=== PATIENT | female | born 1945 | race Caucasian/White ===

== ENCOUNTER 2016-10-16 12:41 | Emergency (ER) | payer OTHER ==
[~2016-10-16 12:41] MED LIST: ADVAIR HF1 IN; ADVIL PM1 CAP PO; ALBUTEROL HFA60 DOSE IN; ASPIRIN EC LOW81 MG PO; CENTRUM SILVER PO; CLARITIN10 M1 PO; FISH OIL1000 M1 PO; FLAX SEED OIL1300 MG PO; LOSARTAN POTAS100 MG PO; METOPROLOL TART25 MG PO; PAROXETINE HCL30 MG PO; PRAMIPEXOLE DI0.5 MG PO; PRAVASTATIN SOD20 MG PO; PRILOSEC20 MG PO
--- NOTE | 2016-10-16 14:12 | DIAGNOSTIC IMAGING REPORT ---
PROCEDURE: XR CHEST 2 VIEW INDICATION: PRODUCTIVE COUGH X 3 WEEKS, initial encounter TECHNIQUE: PA and lateral view. COMPARISON: Chest x-ray 07/22/2016 FINDINGS: Lungs are clear. Left pericardial fat pad. Cardiovascular structures are normal. Bony thorax is unremarkable. No significant interval change. IMPRESSION: 1. No acute changes
--- NOTE | 2016-10-16 15:50 | ED NURSING NOTES ---
Clinical Report - Nurses [facility] [address] [place] [address] 10/16/2016 12:42 Patient: CHRISTINE SHEETS TRIAGE Triage time 13:14 Oct 16 2016. Acuity: LEVEL 3. Chief Complaint: COUGH. Alert. No acute distress. --13:23 Lisseth Fisher R.N. 13:14 10/16/16. BP: 168/67. HR: 76. RR: 18. O2 saturation: 99%. Temp: 98.7 F. Pain level now 01/07. --13:23 Lisseth Fisher R.N. Weight: 86.1 kg stated. Height/Length: 60 inches Per Patient. BMI: 37.1. --13:14 Lisseth Fisher R.N. Medications Advair 115/21 day, 2x a day. Allergy med otc day . Centrim silver 220mg day . Fish oil 1000mg BID. Losartan Potassium Oral 25 mg, daily. --13:18 Lisseth Fisher R.N. Melatonin Oral (Tablet 3 mg) 1 tablet, hs. Metoprolol Tartrate Oral 25 mg, bid. Omeprazole Oral 20 mg, daily. Pravastatin Sodium Oral 20 mg, at bedtime. Proventil inhaler prn . Requip Oral (Tablet 0.5 mg) 1 tablet, hs. Sertraline HCl Oral (Tablet 25 mg) 1 tablet, daily. --13:18 Lisseth Fisher R.N. ASA Oral 81mg (1 tablet every other day). --13:19 Lisseth Fisher R.N. Lasix Oral (unknonwn dose, just started by Cardio). --13:21 Lisseth Fisher R.N. Medication/allergy information source: the patient. --13:23 Lisseth Fisehr R.N. Allergies No Known Drug Allergy. --13:18 Lisseth Fisher R.N. History Arrived by private vehicle. Historian: daughter, patient and family. Primary physician (Dr. Cardozo). ( Cough for 3 weeks, has been seen by Urgent Care, no RX. Now increased cough and chest congestion. C/O headache 01/07. Just NAYELI, pt see's a Personnel Director, had an Outpatient CT today at , DX Pulmonary AVM. Could not get into Cas's office.). Onset. (3 weeks). Treatment PROCEDURES NURSE: (OTC pills for cough). PAST MEDICAL HX: Immunizations: has received pneumonia vaccine; seasonal influenza. SOCIAL HX: Never smoker. Occasional alcohol use; consumes wine. No drug use. No infectious disease exposure. FALL RISK ASSESSMENT: Fall risk assessment completed. No fall risk identified. NUTRITIONAL RISK ASSESSMENT: The nutritional risk assessment revealed no deficiencies. FUNCTIONAL ASSESSMENT: Functional assessment: no impairments noted. LEARNING NEEDS ASSESSMENT: The learning needs assessment revealed no barriers. SKIN INTEGRITY ASSESSMENT: Skin integrity risk assessment completed. No skin integrity risk identified. --13:23 Lisseth Fisher R.N. PROBLEMS: Neck Pain. Chest Pain. Chest pain . Bronchospasm. Bronchitis. Hepatitis. Hypercholesterolemia. Hypertension. Memory impairment. Asthma. Corotid blockage right. --13:21 Lisseth Fisher R.N. ADDITIONAL SURGERIES: Adenoidectomy. Angiography. Appendectomy. Bladder Suspension. Cholecystectomy. Hysterectomy. Oophorectomy. Salpingectomy. Shoulder Surgery. Tonsillectomy. --13:21 Lisseth Fisher R.N. Interventions ID band on patient. To room. --13:23 Lisseth Fisher R.N. PHYSICAL ASSESSMENT Ambulatory to room. GENERAL / NEURO / PSYCH: Oriented X 4. Appears in no acute distress. CVS: Capillary refill less than 2 seconds. SKIN: Skin is warm and dry. --13:27 Lisseth Fisher R.N. NURSING PROGRESS NOTES Patient ready for evaluation- ED physician and SHARE DAIRY FARMER notified. --13:23 Lisseth Fisher R.N. 13:38 10/16/2016 Duoneb (Ipratropium-Albuterol) Neb TX 1 unit dose given. --13:38 Mychal Williamson 14:56 10/16/2016 Albuterol Neb TX 3 unit dose given. Given by the respiratory therapist. --15:06 Mychal Williamson. DISPOSITION / DISCHARGE 16:10. Condition at departure: improved. No learning barriers present. Discharge instructions provided and reviewed with the patient. Reviewed medication(s) side effects, precautions, dosing and course information. Prescription(s) given to the patient. Patient verbalized understanding. Written instructions provided in Tuvaluan. The patient was discharged home and accompanied by family. She left the Emergency Department ambulatory and via private vehicle. Family member driving. Medication list reviewed and validated. --16:19 Nerissa Reddy R.N. Departure time: 1610. --16:19 Nerissa Reddy R.N. 18:01 10/16/16. BP: 146/47. HR: 110. RR: 18. O2 saturation: 95%. Pain level now 0/10. --18:02 Lisseth Fisher R.N. Locked/Released at 10/16/2016 18:02 by Lisseth Fisher R.N.
--- NOTE | 2016-10-16 15:50 | ED ORDER SUMMARY ---
..... Patient: CHRISTINE SHEEST OrderSheet [facility] VisitID: [id number] [place] [address] 71y, F Registration Date/Time: 10/16/2016 ORDER SHEET Weight: 86.1 kg (stated) Allergies: No Known Drug Allergy GENERAL ORDERS: Chest 2V Urgent (13:32 10/16/2016 Dereje Baker) (Ack 13:41 NHouse ER Tech1) (14:44 NHouse ER Tech1) MEDICATION ORDERS: DuoNeb Neb Tx 1 unit dose (NOW) (13:32 10/16/2016 Dereje Baker) (13:38 DBourey) Albuterol Neb Tx 7.5 mg (once now over 1 hour) (14:44 10/16/2016 Dereje Baker) (Ack 14:51 NHouse ER Tech1) (15:06 DBourey) Azithromycin PO 500 mg (NOW) (15:49 10/16/2016 Dereje Baker) (Ack 16:00 SRjelani R.N.) Prednisone PO 60 mg (NOW) (15:50 10/16/2016 Dereje Baker) (Ack 16:00 Elvin R.N.) IV FLUIDS: ORDER SHEET NOTES: [Electronically signed by Lisseth Fisher R.N. (18:02 10/16/2016)] [Electronically signed by Rush Partida Dr. (06:38 10/20/2016)] [Electronically locked/signed by Lisseth Fisher R.N. (18:02 10/16/2016)]
--- NOTE | 2016-10-16 15:50 | ED NURSING NOTES ---
Clinical Report - Nurses [facility] [address] [place] [address] 10/16/2016 12:42 Patient: CHRISTINE SHEETS TRIAGE Triage time 13:14 Oct 16 2016. Acuity: LEVEL 3. Chief Complaint: COUGH. Alert. No acute distress. --13:23 Lisseth Fisher R.N. 13:14 10/16/16. BP: 168/67. HR: 76. RR: 18. O2 saturation: 99%. Temp: 98.7 F. Pain level now 01/07. --13:23 Lisseth Fisher R.N. Weight: 86.1 kg stated. Height/Length: 60 inches Per Patient. BMI: 37.1. --13:14 Lisseth Fisher R.N. Medications Advair 115/21 day, 2x a day. Allergy med otc day . Centrim silver 220mg day . Fish oil 1000mg BID. Losartan Potassium Oral 25 mg, daily. --13:18 Lisseth Fisher R.N. Melatonin Oral (Tablet 3 mg) 1 tablet, hs. Metoprolol Tartrate Oral 25 mg, bid. Omeprazole Oral 20 mg, daily. Pravastatin Sodium Oral 20 mg, at bedtime. Proventil inhaler prn . Requip Oral (Tablet 0.5 mg) 1 tablet, hs. Sertraline HCl Oral (Tablet 25 mg) 1 tablet, daily. --13:18 Lisseth Fisher R.N. ASA Oral 81mg (1 tablet every other day). --13:19 Lisseth Fisher R.N. Lasix Oral (unknonwn dose, just started by Cardio). --13:21 Lisseth Fisher R.N. Medication/allergy information source: the patient. --13:23 Lisseth Fisher R.N. Allergies No Known Drug Allergy. --13:18 Lisseth Fisher R.N. History Arrived by private vehicle. Historian: daughter, patient and family. Primary physician (Dr. Cardozo). ( Cough for 3 weeks, has been seen by Urgent Care, no RX. Now increased cough and chest congestion. C/O headache 01/07. Just NAYELI, pt see's a Business Information Analyst, had an Outpatient CT today at , DX Pulmonary AVM. Could not get into Cas's office.). Onset. (3 weeks). Treatment OUTPATIENT SURGERY RN: (OTC pills for cough). PAST MEDICAL HX: Immunizations: has received pneumonia vaccine; seasonal influenza. SOCIAL HX: Never smoker. Occasional alcohol use; consumes wine. No drug use. No infectious disease exposure. FALL RISK ASSESSMENT: Fall risk assessment completed. No fall risk identified. NUTRITIONAL RISK ASSESSMENT: The nutritional risk assessment revealed no deficiencies. FUNCTIONAL ASSESSMENT: Functional assessment: no impairments noted. LEARNING NEEDS ASSESSMENT: The learning needs assessment revealed no barriers. SKIN INTEGRITY ASSESSMENT: Skin integrity risk assessment completed. No skin integrity risk identified. --13:23 Lisseth Fisher R.N. PROBLEMS: Neck Pain. Chest Pain. Chest pain . Bronchospasm. Bronchitis. Hepatitis. Hypercholesterolemia. Hypertension. Memory impairment. Asthma. Corotid blockage right. --13:21 Lisseth Fisher R.N. ADDITIONAL SURGERIES: Adenoidectomy. Angiography. Appendectomy. Bladder Suspension. Cholecystectomy. Hysterectomy. Oophorectomy. Salpingectomy. Shoulder Surgery. Tonsillectomy. --13:21 Lisseth Fisher R.N. Interventions ID band on patient. To room. --13:23 Lisseth Fisher R.N. PHYSICAL ASSESSMENT Ambulatory to room. GENERAL / NEURO / PSYCH: Oriented X 4. Appears in no acute distress. CVS: Capillary refill less than 2 seconds. SKIN: Skin is warm and dry. --13:27 Lisseth Fisher R.N. NURSING PROGRESS NOTES Patient ready for evaluation- ED physician and CONTRACT PROCESSOR notified. --13:23 Lisseth Fisher R.N. 13:38 10/16/2016 Duoneb (Ipratropium-Albuterol) Neb TX 1 unit dose given. --13:38 Mychal Williamson 14:56 10/16/2016 Albuterol Neb TX 3 unit dose given. Given by the respiratory therapist. --15:06 Mychal Williamson. DISPOSITION / DISCHARGE 16:10. Condition at departure: improved. No learning barriers present. Discharge instructions provided and reviewed with the patient. Reviewed medication(s) side effects, precautions, dosing and course information. Prescription(s) given to the patient. Patient verbalized understanding. Written instructions provided in Belgian. The patient was discharged home and accompanied by family. She left the Emergency Department ambulatory and via private vehicle. Family member driving. Medication list reviewed and validated. --16:19 Nerissa Reddy R.N. Departure time: 1610. --16:19 Nerissa Reddy R.N. 18:01 10/16/16. BP: 146/47. HR: 110. RR: 18. O2 saturation: 95%. Pain level now 0/10. --18:02 Lisseth Fisher R.N. Locked/Released at 10/16/2016 18:02 by Lisseth Fisher R.N.
--- NOTE | 2016-10-16 15:50 | ED ORDER SUMMARY ---
..... Patient: CHRISTINE SHEETS OrderSheet [facility] VisitID: [id number] [place] [address] 71y, F Registration Date/Time: 10/16/2016 ORDER SHEET Weight: 86.1 kg (stated) Allergies: No Known Drug Allergy GENERAL ORDERS: Chest 2V Urgent (13:32 10/16/2016 Dereje Baker) (Ack 13:41 NHouse ER Tech1) (14:44 NHouse ER Tech1) MEDICATION ORDERS: DuoNeb Neb Tx 1 unit dose (NOW) (13:32 10/16/2016 Dereje Baker) (13:38 DBourey) Albuterol Neb Tx 7.5 mg (once now over 1 hour) (14:44 10/16/2016 Dereje Baker) (Ack 14:51 NHouse ER Tech1) (15:06 DBourey) Azithromycin PO 500 mg (NOW) (15:49 10/16/2016 Dereje Baker) (Ack 16:00 SRjelani R.N.) Prednisone PO 60 mg (NOW) (15:50 10/16/2016 Dereje Baker) (Ack 16:00 Elvin R.N.) IV FLUIDS: ORDER SHEET NOTES: [Electronically signed by Lisseth Fisher R.N. (18:02 10/16/2016)] [Electronically signed by Rush Partida Dr. (06:38 10/20/2016)] [Electronically locked/signed by Lisseth Fisher R.N. (18:02 10/16/2016)]
--- NOTE | 2016-10-20 06:38 | ED DISCHARGE INSTRUCTIONS ---
Patient: CHRISTINE SHEETS General Instructions [facility] VisitID: [id number] [place] [address] 71y, F Registration Date/Time: 10/16/2016 10/16/2016 13:14 BP: 168/67. HR: 76. RR: 18. O2 saturation: 99%. Temp: 98.7 F. Hypertensive. Oxygen saturation normal. Moderate persistent asthma with an acute exacerbation (acute). No status asthmaticus. Acute bacterial bronchitis associated with asthma. INSTRUCTIONS Warnings: GENERAL WARNINGS: Return or contact your physician immediately if your condition worsens or changes unexpectedly, if not improving as expected, or if other problems arise. Specifically return if pain, vomiting, bleeding, breathing difficulty or fever. Your Current Medications: CONTINUE TAKING THE FOLLOWING MEDICATIONS: Advair day* : 2x a day. Allergy med otc day *. ASA Oral : 81mg, 1 tablet every other day. Centrim silver 220mg day *. Fish oil 1000mg BID*. Lasix Oral : unknonwn dose, just started by Cardio. Losartan Potassium Oral : 25 mg daily. Melatonin Oral : Tablet 3 mg, 1 tablet hs. Metoprolol Tartrate Oral : 25 mg bid. Omeprazole Oral : 20 mg daily. Pravastatin Sodium Oral : 20 mg at bedtime. Proventil inhaler prn *. Requip Oral : Tablet 0.5 mg, 1 tablet hs. Sertraline HCl Oral : Tablet 25 mg, 1 tablet daily. Prescription Medications: Azithromycin Z-Ru 500 mg tablets: Take according to package instructions. No refills. Phenergan w/ Codeine 10mg / 6.25mg per 5 mL: take 1 teaspoon every 6 hours as needed for pain or cough. Dispense sixty (60) mL. No refill. Substitution is permissible. Prednisone 50 mg: take 1 orally every day for 5 days. Dispense five (5). No refills. Follow-up: Return to the emergency department as needed. Follow up with your doctor in three days. Reason for referral: recheck today's concerns. Screening today revealed the patient's blood pressure to be in the hypertensive range. Blood pressure screening was not performed during this visit because the patient has an active diagnosis of hypertension. The patient should follow up with a primary care provider for blood pressure management. Understanding of the discharge instructions verbalized by patient. ADDITIONAL INFORMATION Asthma [Adult] Asthma is a disease where the small air passages within the lung go into spasm and restrict the flow of air. Inflammation and swelling of the airways cause further restriction. During an acute asthma attack, these factors cause difficulty breathing, wheezing, cough and chest tightness. An asthma attack can be triggered by many things. Common triggers include the common cold, bronchitis, pneumonia, irritants such as smoke or pullutants in the air, emotional upset and heavy exercise. Inmany adults with asthma, allergies todust, mold, pollen and animal dander can cause an asthma attack. Skipping doses of daily asthma medicine can also bring on an asthma attack. Asthma can be controlled with proper medicines and decreased exposure to known allergens. Home Care: Take prescribed medicine exactly at the times advised. If you have a hand-held inhaler or aerosol breathing medicine, do not use it more than once every four hours, unless told to do so. (If you need this medicine more than every four hours, you may need to return to the Emergency Room.) If prescribed an antibiotic or prednisone, take all of the medicine even if you are feeling better after a few days. Do not smoke. Avoid being exposed to the smoke of others. Some persons with asthma have worsening of their symptoms when they take aspirin and non-steroidal medicines like ibuprofen (Motrin, Advil) and naproxen (Aleve, Naprosyn). Talk to your doctor if you think this may apply to you. Acetaminophen (Tylenol)should be safe to use. Follow Up with your doctor, or as advised by our staff. Always bring all of your current medicines with you for your doctor to see. If you do not already have one, talk to your doctor about developing a personalized "Asthma Action Plan." [NOTE: A pneumococcal vaccine and yearly flu shot (every fall) are recommended. Ask your doctor about this.] Get Prompt Medical Attention if any of the following occur: Increased wheezing or shortness of breath Need to use your inhalers more often than usual without relief Fever of 100.4F (38C) or higher, or as directed by your healthcare provider Coughing up lots of dark-colored or bloody sputum (mucus) Chest pain with each breath You do not start to improve within 24 hours Call 911 If Any Of The Following Occur : Trouble walking or talking because of shortness of breath If you use a peak flow meter andyou are still in the red zone (less than 50 percent) 15 minutes after using inhaler medication Lips or fingernails turning haywood or blue Bronchitis (Adult: Abx Tx) BRONCHITIS is an infection of the air passages (bronchial tubes). It often occurs during the common cold. Symptoms include cough with mucus (phlegm) and low-grade fever. Bronchitis usually lasts 7-14 days. Mild cases can be treated with simple home remedies. More severe infection is treated with an antibiotic. Home Care: If symptoms are severe, rest at home for the first 2-3 days. When you resume activity, don't let yourself get too tired. Do not smoke. Avoid being exposed to the smoke of others. You may use acetaminophen (Tylenol) or ibuprofen (Motrin, Advil) to control fever or pain, unless another medicine was prescribed for this. [NOTE: If you have chronic liver or kidney disease or ever had a stomach ulcer or GI bleeding, talk with your doctor before using these medicines.] Your appetite may be poor, so a light diet is fine. Avoid dehydration by drinking 6-8 glasses of fluids per day (water, soft, drinks, juices, tea, soup, etc.). Extra fluids will help loosen secretions in the lungs. Apeu-gpa-lgdotxs cough medicines that containdextromethorphan(such as Robitussin DM) and decongestants (Actifed or Sudafed) may help relieve cough and congestion. [NOTE: Do not use decongestants if you have high blood pressure.] Finish all antibiotic medicine, even if you are feeling better after only a few days. Follow Up with your doctor or as directed if you dont start to feel better after three days. [NOTE: If you are age 65 or older, or if you have chronic asthma or COPD, we recommend a PNEUMOCOCCAL VACCINATION every five years and a yearly INFLUENZAVACCINATION (FLU-SHOT) every . Ask your doctor about this. If you had an X-ray, a radiologist will review it. You will be notified of any new findings that may affect your care.] Get Prompt Medical Attention if any of the following occur: Fever over 100.4F (38.0C) for more than three days Trouble breathing, wheezing or pain with breathing Coughing up blood or increased amounts of colored sputum Weakness, drowsiness, headache, facial pain, ear pain or a stiff neck Azithromycin Oral tablet What is this medicine? AZITHROMYCIN (az mackenzie thorne) is a macrolide antibiotic. It is used to treat or prevent certain kinds of bacterial infections. It will not work for colds, flu, or other viral infections. How should I use this medicine? Take this medicine by mouth with a full glass of water. Follow the directions on the prescription label. The tablets can be taken with food or on an empty stomach. If the medicine upsets your stomach, take it with food. Take your medicine at regular intervals. Do not take your medicine more often than directed. Take all of your medicine as directed even if you think your are better. Do not skip doses or stop your medicine early. Talk to your lawn care specialist regarding the use of this medicine in children. Special care may be needed. What side effects may I notice from receiving this medicine? Side effects that you should report to your doctor or health special needs caregiver as soon as possible: allergic reactions like skin rash, itching or hives, swelling of the face, lips, or tongue confusion, nightmares or hallucinations dark urine difficulty breathing hearing loss irregular heartbeat or chest pain pain or difficulty passing urine redness, blistering, peeling or loosening of the skin, including inside the mouth white patches or sores in the mouth yellowing of the eyes or skin Side effects that usually do not require medical attention (report to your doctor or health special needs caregiver if they continue or are bothersome): diarrhea dizziness, drowsiness headache stomach upset or vomiting tooth discoloration vaginal irritation What may interact with this medicine? Do not take this medicine with any of the following medications: lincomycin This medicine may also interact with the following medications: amiodarone antacids cyclosporine digoxin magnesium nelfinavir phenytoin warfarin What if I miss a dose? If you miss a dose, take it as soon as you can. If it is almost time for your next dose, take only that dose. Do not take double or extra doses. Where should I keep my medicine? Keep out of the reach of children. Store at room temperature between 15 and 30 degrees C (59 and 86 degrees F). Throw away any unused medicine after the expiration date. What should I tell my health care provider before I take this medicine? They need to know if you have any of these conditions: kidney disease liver disease irregular heartbeat or heart disease an unusual or allergic reaction to azithromycin, erythromycin, other macrolide antibiotics, foods, dyes, or preservatives or trying to get breast-feeding What should I watch for while using this medicine? Tell your doctor or health special needs caregiver if your symptoms do not improve. Do not treat diarrhea with over the counter products. Contact your doctor if you have diarrhea that lasts more than 2 days or if it is severe and watery. This medicine can make you more sensitive to the sun. Keep out of the sun. If you cannot avoid being in the sun, wear protective clothing and use sunscreen. Do not use sun lamps or tanning beds/booths. Prednisone Oral tablet What is this medicine? PREDNISONE (PRED ni sone) is a corticosteroid. It is commonly used to treat inflammation of the skin, joints, lungs, and other organs. Common conditions treated include asthma, allergies, and arthritis. It is also used for other conditions, such as blood disorders and diseases of the adrenal glands. How should I use this medicine? Take this medicine by mouth with a glass of water. Follow the directions on the prescription label. Take this medicine with food. If you are taking this medicine once a day, take it in the morning. Do not take more medicine than you are told to take. Do not suddenly stop taking your medicine because you may develop a severe reaction. Your doctor will tell you how much medicine to take. If your doctor wants you to stop the medicine, the dose may be slowly lowered over time to avoid any side effects. Talk to your lawn care specialist regarding the use of this medicine in children. Special care may be needed. What side effects may I notice from receiving this medicine? Side effects that you should report to your doctor or health special needs caregiver as soon as possible: allergic reactions like skin rash, itching or hives, swelling of the face, lips, or tongue changes in emotions or moods changes in vision depressed mood eye pain fever or chills, cough, sore throat, pain or difficulty passing urine increased thirst swelling of ankles, feet Side effects that usually do not require medical attention (report to your doctor or health special needs caregiver if they continue or are bothersome): confusion, excitement, restlessness headache nausea, vomiting skin problems, acne, thin and shiny skin trouble sleeping weight gain What may interact with this medicine? Do not take this medicine with any of the following medications: metyrapone mifepristone This medicine may also interact with the following medications: aminoglutethimide amphotericin B aspirin and aspirin-like medicines barbiturates certain medicines for diabetes, like glipizide or glyburide cholestyramine cholinesterase inhibitors cyclosporine digoxin diuretics ephedrine female hormones, like estrogens and control pills isoniazid ketoconazole NSAIDS, medicines for pain and inflammation, like ibuprofen or naproxen phenytoin rifampin toxoids vaccines warfarin What if I miss a dose? If you miss a dose, take it as soon as you can. If it is almost time for your next dose, talk to your doctor or health special needs caregiver. You may need to miss a dose or take an extra dose. Do not take double or extra doses without advice. Where should I keep my medicine? Keep out of the reach of children. Store at room temperature between 15 and 30 degrees C (59 and 86 degrees F). Protect from light. Keep container tightly closed. Throw away any unused medicine after the expiration date. What should I tell my health care provider before I take this medicine? They need to know if you have any of these conditions: Lahoma's syndrome diabetes glaucoma heart disease high blood pressure infection (especially a virus infection such as chickenpox, cold sores, or herpes) kidney disease liver disease mental illness myasthenia gravis osteoporosis seizures stomach or intestine problems thyroid disease an unusual or allergic reaction to lactose, prednisone, other medicines, foods, dyes, or preservatives or trying to get breast-feeding What should I watch for while using this medicine? Visit your doctor or health special needs caregiver for regular checks on your progress. If you are taking this medicine over a prolonged period, carry an identification card with your name and address, the type and dose of your medicine, and your doctor's name and address. This medicine may increase your risk of getting an infection. Tell your doctor or health special needs caregiver if you are around anyone with measles or chickenpox, or if you develop sores or blisters that do not heal properly. If you are going to have surgery, tell your doctor or health special needs caregiver that you have taken this medicine within the last twelve months. Ask your doctor or health special needs caregiver about your diet. You may need to lower the amount of salt you eat. This medicine may affect blood sugar levels. If you have diabetes, check with your doctor or health special needs caregiver before you change your diet or the dose of your diabetic medicine. You have been given the following additional information: Asthma, Acute (Adult) Bronchitis, Antiobiotic Treatment (Adult) Azithromycin Oral tablet Prednisone Oral tablet (Electronically signed by Rush Partida Dr. 10/20/2016 6:38)
--- NOTE | 2016-10-20 06:38 | ED CLINICAL REPORT ---
Clinical Report - Physicians/Mid Levels [facility] [address] [place] [address] 10/16/2016 12:42 Patient: CHRISTINE SHEETS Arrived- By private vehicle. Historian- patient. HISTORY OF PRESENT ILLNESS Chief Complaint: WHEEZING. This started past few weeks and is still present (staying the same). It was gradual in onset and has been waxing/waning but is not gone now. The dyspnea is described as moderate. The patient has had a cough. (wheezing). Takes asthma medications. Similar symptoms previously: Recent medical care: The patient was seen recently in a clinic. REVIEW OF SYSTEMS No palpitations, nausea, skin rash or vomiting. All systems otherwise negative, except as recorded above. PAST HISTORY See nurses notes. Medications: Lasix Oral (unknonwn dose, just started by Cardio). ASA Oral 81mg (1 tablet every other day). Melatonin Oral (Tablet 3 mg) 1 tablet, hs. Metoprolol Tartrate Oral 25 mg, bid. Omeprazole Oral 20 mg, daily. Pravastatin Sodium Oral 20 mg, at bedtime. Proventil inhaler prn . Requip Oral (Tablet 0.5 mg) 1 tablet, hs. Sertraline HCl Oral (Tablet 25 mg) 1 tablet, daily. Advair 115/21 day, 2x a day. Allergy med otc day . Centrim silver 220mg day . Fish oil 1000mg BID. Losartan Potassium Oral 25 mg, daily. Allergies: No Known Drug Allergy. SOCIAL HISTORY Never smoker. No alcohol use or drug use. No recent travel. Is a local resident. ADDITIONAL NOTES The nursing notes have been reviewed. PHYSICAL EXAM Vital Signs: 10/16/2016 13:14 BP: 168/67. HR: 76. RR: 18. O2 saturation: 99%. Temp: 98.7 F. Blood pressure normal. Oxygen saturation normal. Appearance: Alert. No acute distress. Eyes: Pupils equal, round and reactive to light. Eyes normal inspection. ENT: Ears normal. Nose normal. Pharynx normal. Uvula midline. Neck: Normal inspection. Neck supple. No meningeal signs. CVS: Normal heart rate and rhythm. Heart sounds normal. Pulses normal. Respiratory: No respiratory distress. No respiratory distress. Expiratory moderate bilateral wheezes diffusely. No stridor, rales or rhonchi. Abdomen: Soft and nontender. No organomegaly. Back: Normal inspection. Skin: Skin warm and dry. Normal skin color. No rash. Normal skin turgor. Extremities: Extremities exhibit normal ROM. No lower extremity edema. LABS, X-RAYS, AND EKG Chest X-ray: (PROCEDURE: XR CHEST 2 VIEW INDICATION: PRODUCTIVE COUGH X 3 WEEKS, initial encounter TECHNIQUE: PA and lateral view. COMPARISON: Chest x-ray 07/22/2016 FINDINGS: Lungs are clear. Left pericardial fat pad. Cardiovascular structures are normal. Bony thorax is unremarkable. No significant interval change. IMPRESSION: 1. No acute changes). The X-rays were independently viewed by me and interpreted by the radiologist and contemporaneously by me. The X-rays were discussed with the radiologist (via pacs after disposition decided). PROGRESS AND PROCEDURES Course of Care: The patient is a pleasant 71-year-old female with past medical history significant for asthma and right upper lobe hemangioma presents for urination or wheezing and shortness of breath. The patient has had symptoms of coughing for the past several weeks. Patient has not been on antibiotics recently. At this time trial of antibiotics would be warranted. Patient is having a moderate amount of wheezing on examination. Breathing treatment has been ordered. Chest x-ray is also been ordered. The patient is resting in bed in no acute distress. Patient is agreeable to the treatment and plan. The patient's workup was unremarkable for any acute infiltrates on chest x-ray. The patient reported improvement with her breathing symptoms after the DuoNeb has been given. The patient still wheezing on examination. Another breathing treatment will be ordered. Patient was reevaluated after the second breathing treatment has been given. Patient with no wheezing on examination and clear lung grace throughout all areas. Patient will be given antibiotics for further treatment of her cough at this time. In the past warranted due to the time course of the illness. Head discussion with the patient in regards to her workup, diagnosis, home care, follow-up, and return precautions. All questions answered. The patient expressed understanding of these instructions and was agreeable to them. Do not feel patient needs to be admitted to the hospital require further emergency Department evaluation/treatment. Symptoms improved. Lungs are clear. Patient is nontoxic. No signs of respiratory distress. Disposition: Discharged. Condition: good. CLINICAL IMPRESSION 10/16/2016 13:14 BP: 168/67. HR: 76. RR: 18. O2 saturation: 99%. Temp: 98.7 F. Hypertensive. Oxygen saturation normal. Moderate persistent asthma with an acute exacerbation (acute). No status asthmaticus. Acute bacterial bronchitis associated with asthma. INSTRUCTIONS Warnings: GENERAL WARNINGS: Return or contact your physician immediately if your condition worsens or changes unexpectedly, if not improving as expected, or if other problems arise. Specifically return if pain, vomiting, bleeding, breathing difficulty or fever. Your Current Medications: CONTINUE TAKING THE FOLLOWING MEDICATIONS: Advair day* : 2x a day. Allergy med otc day *. ASA Oral : 81mg, 1 tablet every other day. Centrim silver 220mg day *. Fish oil 1000mg BID*. Lasix Oral : unknonwn dose, just started by Cardio. Losartan Potassium Oral : 25 mg daily. Melatonin Oral : Tablet 3 mg, 1 tablet hs. Metoprolol Tartrate Oral : 25 mg bid. Omeprazole Oral : 20 mg daily. Pravastatin Sodium Oral : 20 mg at bedtime. Proventil inhaler prn *. Requip Oral : Tablet 0.5 mg, 1 tablet hs. Sertraline HCl Oral : Tablet 25 mg, 1 tablet daily. Prescription Medications: Azithromycin Z-Ru 500 mg tablets: Take according to package instructions. No refills. Phenergan w/ Codeine 10mg / 6.25mg per 5 mL: take 1 teaspoon every 6 hours as needed for pain or cough. Dispense sixty (60) mL. No refill. Substitution is permissible. Prednisone 50 mg: take 1 orally every day for 5 days. Dispense five (5). No refills. Follow-up: Return to the emergency department as needed. Follow up with your doctor in three days. Reason for referral: recheck today's concerns. Screening today revealed the patient's blood pressure to be in the hypertensive range. Blood pressure screening was not performed during this visit because the patient has an active diagnosis of hypertension. The patient should follow up with a primary care provider for blood pressure management. Understanding of the discharge instructions verbalized by patient. (Electronically signed by Rush Partida Dr. 10/20/2016 6:38)
--- NOTE | 2016-10-20 06:38 | ED DISCHARGE INSTRUCTIONS ---
Patient: CHRISTINE SHEETS General Instructions [facility] VisitID: [id number] [place] [address] 71y, F Registration Date/Time: 10/16/2016 10/16/2016 13:14 BP: 168/67. HR: 76. RR: 18. O2 saturation: 99%. Temp: 98.7 F. Hypertensive. Oxygen saturation normal. Moderate persistent asthma with an acute exacerbation (acute). No status asthmaticus. Acute bacterial bronchitis associated with asthma. INSTRUCTIONS Warnings: GENERAL WARNINGS: Return or contact your physician immediately if your condition worsens or changes unexpectedly, if not improving as expected, or if other problems arise. Specifically return if pain, vomiting, bleeding, breathing difficulty or fever. Your Current Medications: CONTINUE TAKING THE FOLLOWING MEDICATIONS: Advair day* : 2x a day. Allergy med otc day *. ASA Oral : 81mg, 1 tablet every other day. Centrim silver 220mg day *. Fish oil 1000mg BID*. Lasix Oral : unknonwn dose, just started by Cardio. Losartan Potassium Oral : 25 mg daily. Melatonin Oral : Tablet 3 mg, 1 tablet hs. Metoprolol Tartrate Oral : 25 mg bid. Omeprazole Oral : 20 mg daily. Pravastatin Sodium Oral : 20 mg at bedtime. Proventil inhaler prn *. Requip Oral : Tablet 0.5 mg, 1 tablet hs. Sertraline HCl Oral : Tablet 25 mg, 1 tablet daily. Prescription Medications: Azithromycin Z-Ru 500 mg tablets: Take according to package instructions. No refills. Phenergan w/ Codeine 10mg / 6.25mg per 5 mL: take 1 teaspoon every 6 hours as needed for pain or cough. Dispense sixty (60) mL. No refill. Substitution is permissible. Prednisone 50 mg: take 1 orally every day for 5 days. Dispense five (5). No refills. Follow-up: Return to the emergency department as needed. Follow up with your doctor in three days. Reason for referral: recheck today's concerns. Screening today revealed the patient's blood pressure to be in the hypertensive range. Blood pressure screening was not performed during this visit because the patient has an active diagnosis of hypertension. The patient should follow up with a primary care provider for blood pressure management. Understanding of the discharge instructions verbalized by patient. ADDITIONAL INFORMATION Asthma [Adult] Asthma is a disease where the small air passages within the lung go into spasm and restrict the flow of air. Inflammation and swelling of the airways cause further restriction. During an acute asthma attack, these factors cause difficulty breathing, wheezing, cough and chest tightness. An asthma attack can be triggered by many things. Common triggers include the common cold, bronchitis, pneumonia, irritants such as smoke or pullutants in the air, emotional upset and heavy exercise. Inmany adults with asthma, allergies todust, mold, pollen and animal dander can cause an asthma attack. Skipping doses of daily asthma medicine can also bring on an asthma attack. Asthma can be controlled with proper medicines and decreased exposure to known allergens. Home Care: Take prescribed medicine exactly at the times advised. If you have a hand-held inhaler or aerosol breathing medicine, do not use it more than once every four hours, unless told to do so. (If you need this medicine more than every four hours, you may need to return to the Emergency Room.) If prescribed an antibiotic or prednisone, take all of the medicine even if you are feeling better after a few days. Do not smoke. Avoid being exposed to the smoke of others. Some persons with asthma have worsening of their symptoms when they take aspirin and non-steroidal medicines like ibuprofen (Motrin, Advil) and naproxen (Aleve, Naprosyn). Talk to your doctor if you think this may apply to you. Acetaminophen (Tylenol)should be safe to use. Follow Up with your doctor, or as advised by our staff. Always bring all of your current medicines with you for your doctor to see. If you do not already have one, talk to your doctor about developing a personalized "Asthma Action Plan." [NOTE: A pneumococcal vaccine and yearly flu shot (every fall) are recommended. Ask your doctor about this.] Get Prompt Medical Attention if any of the following occur: Increased wheezing or shortness of breath Need to use your inhalers more often than usual without relief Fever of 100.4F (38C) or higher, or as directed by your healthcare provider Coughing up lots of dark-colored or bloody sputum (mucus) Chest pain with each breath You do not start to improve within 24 hours Call 911 If Any Of The Following Occur : Trouble walking or talking because of shortness of breath If you use a peak flow meter andyou are still in the red zone (less than 50 percent) 15 minutes after using inhaler medication Lips or fingernails turning haywood or blue Bronchitis (Adult: Abx Tx) BRONCHITIS is an infection of the air passages (bronchial tubes). It often occurs during the common cold. Symptoms include cough with mucus (phlegm) and low-grade fever. Bronchitis usually lasts 7-14 days. Mild cases can be treated with simple home remedies. More severe infection is treated with an antibiotic. Home Care: If symptoms are severe, rest at home for the first 2-3 days. When you resume activity, don't let yourself get too tired. Do not smoke. Avoid being exposed to the smoke of others. You may use acetaminophen (Tylenol) or ibuprofen (Motrin, Advil) to control fever or pain, unless another medicine was prescribed for this. [NOTE: If you have chronic liver or kidney disease or ever had a stomach ulcer or GI bleeding, talk with your doctor before using these medicines.] Your appetite may be poor, so a light diet is fine. Avoid dehydration by drinking 6-8 glasses of fluids per day (water, soft, drinks, juices, tea, soup, etc.). Extra fluids will help loosen secretions in the lungs. Cogu-moe-apbzhwb cough medicines that containdextromethorphan(such as Robitussin DM) and decongestants (Actifed or Sudafed) may help relieve cough and congestion. [NOTE: Do not use decongestants if you have high blood pressure.] Finish all antibiotic medicine, even if you are feeling better after only a few days. Follow Up with your doctor or as directed if you dont start to feel better after three days. [NOTE: If you are age 65 or older, or if you have chronic asthma or COPD, we recommend a PNEUMOCOCCAL VACCINATION every five years and a yearly INFLUENZAVACCINATION (FLU-SHOT) every . Ask your doctor about this. If you had an X-ray, a radiologist will review it. You will be notified of any new findings that may affect your care.] Get Prompt Medical Attention if any of the following occur: Fever over 100.4F (38.0C) for more than three days Trouble breathing, wheezing or pain with breathing Coughing up blood or increased amounts of colored sputum Weakness, drowsiness, headache, facial pain, ear pain or a stiff neck Azithromycin Oral tablet What is this medicine? AZITHROMYCIN (az mackenzie thorne) is a macrolide antibiotic. It is used to treat or prevent certain kinds of bacterial infections. It will not work for colds, flu, or other viral infections. How should I use this medicine? Take this medicine by mouth with a full glass of water. Follow the directions on the prescription label. The tablets can be taken with food or on an empty stomach. If the medicine upsets your stomach, take it with food. Take your medicine at regular intervals. Do not take your medicine more often than directed. Take all of your medicine as directed even if you think your are better. Do not skip doses or stop your medicine early. Talk to your visual education teacher regarding the use of this medicine in children. Special care may be needed. What side effects may I notice from receiving this medicine? Side effects that you should report to your doctor or health day care worker as soon as possible: allergic reactions like skin rash, itching or hives, swelling of the face, lips, or tongue confusion, nightmares or hallucinations dark urine difficulty breathing hearing loss irregular heartbeat or chest pain pain or difficulty passing urine redness, blistering, peeling or loosening of the skin, including inside the mouth white patches or sores in the mouth yellowing of the eyes or skin Side effects that usually do not require medical attention (report to your doctor or health day care worker if they continue or are bothersome): diarrhea dizziness, drowsiness headache stomach upset or vomiting tooth discoloration vaginal irritation What may interact with this medicine? Do not take this medicine with any of the following medications: lincomycin This medicine may also interact with the following medications: amiodarone antacids cyclosporine digoxin magnesium nelfinavir phenytoin warfarin What if I miss a dose? If you miss a dose, take it as soon as you can. If it is almost time for your next dose, take only that dose. Do not take double or extra doses. Where should I keep my medicine? Keep out of the reach of children. Store at room temperature between 15 and 30 degrees C (59 and 86 degrees F). Throw away any unused medicine after the expiration date. What should I tell my health care provider before I take this medicine? They need to know if you have any of these conditions: kidney disease liver disease irregular heartbeat or heart disease an unusual or allergic reaction to azithromycin, erythromycin, other macrolide antibiotics, foods, dyes, or preservatives or trying to get breast-feeding What should I watch for while using this medicine? Tell your doctor or health day care worker if your symptoms do not improve. Do not treat diarrhea with over the counter products. Contact your doctor if you have diarrhea that lasts more than 2 days or if it is severe and watery. This medicine can make you more sensitive to the sun. Keep out of the sun. If you cannot avoid being in the sun, wear protective clothing and use sunscreen. Do not use sun lamps or tanning beds/booths. Prednisone Oral tablet What is this medicine? PREDNISONE (PRED ni sone) is a corticosteroid. It is commonly used to treat inflammation of the skin, joints, lungs, and other organs. Common conditions treated include asthma, allergies, and arthritis. It is also used for other conditions, such as blood disorders and diseases of the adrenal glands. How should I use this medicine? Take this medicine by mouth with a glass of water. Follow the directions on the prescription label. Take this medicine with food. If you are taking this medicine once a day, take it in the morning. Do not take more medicine than you are told to take. Do not suddenly stop taking your medicine because you may develop a severe reaction. Your doctor will tell you how much medicine to take. If your doctor wants you to stop the medicine, the dose may be slowly lowered over time to avoid any side effects. Talk to your visual education teacher regarding the use of this medicine in children. Special care may be needed. What side effects may I notice from receiving this medicine? Side effects that you should report to your doctor or health day care worker as soon as possible: allergic reactions like skin rash, itching or hives, swelling of the face, lips, or tongue changes in emotions or moods changes in vision depressed mood eye pain fever or chills, cough, sore throat, pain or difficulty passing urine increased thirst swelling of ankles, feet Side effects that usually do not require medical attention (report to your doctor or health day care worker if they continue or are bothersome): confusion, excitement, restlessness headache nausea, vomiting skin problems, acne, thin and shiny skin trouble sleeping weight gain What may interact with this medicine? Do not take this medicine with any of the following medications: metyrapone mifepristone This medicine may also interact with the following medications: aminoglutethimide amphotericin B aspirin and aspirin-like medicines barbiturates certain medicines for diabetes, like glipizide or glyburide cholestyramine cholinesterase inhibitors cyclosporine digoxin diuretics ephedrine female hormones, like estrogens and control pills isoniazid ketoconazole NSAIDS, medicines for pain and inflammation, like ibuprofen or naproxen phenytoin rifampin toxoids vaccines warfarin What if I miss a dose? If you miss a dose, take it as soon as you can. If it is almost time for your next dose, talk to your doctor or health day care worker. You may need to miss a dose or take an extra dose. Do not take double or extra doses without advice. Where should I keep my medicine? Keep out of the reach of children. Store at room temperature between 15 and 30 degrees C (59 and 86 degrees F). Protect from light. Keep container tightly closed. Throw away any unused medicine after the expiration date. What should I tell my health care provider before I take this medicine? They need to know if you have any of these conditions: Carmichael's syndrome diabetes glaucoma heart disease high blood pressure infection (especially a virus infection such as chickenpox, cold sores, or herpes) kidney disease liver disease mental illness myasthenia gravis osteoporosis seizures stomach or intestine problems thyroid disease an unusual or allergic reaction to lactose, prednisone, other medicines, foods, dyes, or preservatives or trying to get breast-feeding What should I watch for while using this medicine? Visit your doctor or health day care worker for regular checks on your progress. If you are taking this medicine over a prolonged period, carry an identification card with your name and address, the type and dose of your medicine, and your doctor's name and address. This medicine may increase your risk of getting an infection. Tell your doctor or health day care worker if you are around anyone with measles or chickenpox, or if you develop sores or blisters that do not heal properly. If you are going to have surgery, tell your doctor or health day care worker that you have taken this medicine within the last twelve months. Ask your doctor or health day care worker about your diet. You may need to lower the amount of salt you eat. This medicine may affect blood sugar levels. If you have diabetes, check with your doctor or health day care worker before you change your diet or the dose of your diabetic medicine. You have been given the following additional information: Asthma, Acute (Adult) Bronchitis, Antiobiotic Treatment (Adult) Azithromycin Oral tablet Prednisone Oral tablet (Electronically signed by Rush Partida Dr. 10/20/2016 6:38)
--- NOTE | 2016-10-20 06:39 | ED MAR SUMMARY ---
..... Medication Administration Record [facility] [address] [place] [address] Patient: CHRISTINE SHEETS Visit ID: [id number] 71y, F Weight: 86.1 kg Height/Length: 60 in BMI: 37.1 ALLERGIES: No Known Drug Allergy Given 13:38 10/16/2016 Mychal Williamson, Medication Administered: DUONEB [NEB TX] (IPRATROPIUM-ALBUTEROL), Dose: 1 unit dose Neb TX. Medication Ordered: DuoNeb Neb Tx 1 unit dose (NOW). Given 14:56 10/16/2016 Mychal Williamson, Medication Administered: ALBUTEROL [NEB TX], Dose: 3 unit dose Neb TX. Medication Ordered: Albuterol Neb Tx 7.5 mg (once now over 1 hour).
--- NOTE | 2016-10-20 06:39 | ED MAR SUMMARY ---
..... Medication Administration Record [facility] [address] [place] [address] Patient: CHRISTINE SHEETS Visit ID: [id number] 71y, F Weight: 86.1 kg Height/Length: 60 in BMI: 37.1 ALLERGIES: No Known Drug Allergy Given 13:38 10/16/2016 Mychal Williamson, Medication Administered: DUONEB [NEB TX] (IPRATROPIUM-ALBUTEROL), Dose: 1 unit dose Neb TX. Medication Ordered: DuoNeb Neb Tx 1 unit dose (NOW). Given 14:56 10/16/2016 Mychal Williamson, Medication Administered: ALBUTEROL [NEB TX], Dose: 3 unit dose Neb TX. Medication Ordered: Albuterol Neb Tx 7.5 mg (once now over 1 hour).
--- NOTE | 2016-10-20 06:39 | ED MED RECONCILIATION SUMMARY ---
Patient: CHRISTINE SHEETS Medication Reconciliation Report [facility] VisitID: [id number] [address] [place] [address] 71y, F Registration Date/Time: 10/16/2016 Weight: 86.1 kg Height/Length: 60 in. BMI: 37.1 ALLERGIES: No Known Drug Allergy The patient's Home Medications are listed below: CONTINUE TAKING THE FOLLOWING MEDICATIONS: Advair 115/21 day, 2x a day Allergy med otc day ASA Oral 81mg, 1 tablet every other day Centrim silver 220mg day Fish oil 1000mg BID Lasix Oral, unknonwn dose, just started by Cardio Losartan Potassium Oral 25 mg, daily Melatonin Oral (3 mg) 1 tablet, hs Metoprolol Tartrate Oral 25 mg, bid Omeprazole Oral 20 mg, daily Pravastatin Sodium Oral 20 mg, at bedtime Proventil inhaler prn Requip Oral (0.5 mg) 1 tablet, hs Sertraline HCl Oral (25 mg) 1 tablet, daily The source(s) of the original Home Medication information: patient The following Medications were given to the patient in the Emergency Department: Duoneb [Neb Tx] Neb TX 1 unit dose, administered: 10/16/2016 1:38:00 PM Albuterol [Neb Tx] Neb TX 3 unit dose, administered: 10/16/2016 2:56:00 PM The following Medications were prescribed to the patient: Azithromycin Z-Ru 500 mg tablets: Take according to package instructions. No refills. -- Rush Partida Dr. Phenergan w/ Codeine 10mg / 6.25mg per 5 mL: take 1 teaspoon every 6 hours as needed for pain or cough. Dispense sixty (60) mL. No refill. Substitution is permissible. -- Rush Partida Dr. Prednisone 50 mg: take 1 orally every day for 5 days. Dispense five (5). No refills. -- Rush Partida Dr.
--- NOTE | 2016-10-20 06:39 | ED MED RECONCILIATION SUMMARY ---
Patient: CHRISTINE SHEETS Medication Reconciliation Report [facility] VisitID: [id number] [address] [place] [address] 71y, F Registration Date/Time: 10/16/2016 Weight: 86.1 kg Height/Length: 60 in. BMI: 37.1 ALLERGIES: No Known Drug Allergy The patient's Home Medications are listed below: CONTINUE TAKING THE FOLLOWING MEDICATIONS: Advair 115/21 day, 2x a day Allergy med otc day ASA Oral 81mg, 1 tablet every other day Centrim silver 220mg day Fish oil 1000mg BID Lasix Oral, unknonwn dose, just started by Cardio Losartan Potassium Oral 25 mg, daily Melatonin Oral (3 mg) 1 tablet, hs Metoprolol Tartrate Oral 25 mg, bid Omeprazole Oral 20 mg, daily Pravastatin Sodium Oral 20 mg, at bedtime Proventil inhaler prn Requip Oral (0.5 mg) 1 tablet, hs Sertraline HCl Oral (25 mg) 1 tablet, daily The source(s) of the original Home Medication information: patient The following Medications were given to the patient in the Emergency Department: Duoneb [Neb Tx] Neb TX 1 unit dose, administered: 10/16/2016 1:38:00 PM Albuterol [Neb Tx] Neb TX 3 unit dose, administered: 10/16/2016 2:56:00 PM The following Medications were prescribed to the patient: Azithromycin Z-Ru 500 mg tablets: Take according to package instructions. No refills. -- Rush Partida Dr. Phenergan w/ Codeine 10mg / 6.25mg per 5 mL: take 1 teaspoon every 6 hours as needed for pain or cough. Dispense sixty (60) mL. No refill. Substitution is permissible. -- Rush Partida Dr. Prednisone 50 mg: take 1 orally every day for 5 days. Dispense five (5). No refills. -- Rush Partida Dr.
== END 2016-10-16 16:10 | disposition home or self-care (01) ==
LOC: ED SRH 12:41
DX: J45.41 Moderate persistent asthma with (acute) exacerbation (principal); J20.9 Acute bronchitis, unspecified; I10 Essential (primary) hypertension; Z79.899 Other long term (current) drug therapy

== ENCOUNTER 2016-11-02 11:39 | Emergency (ER) | payer OTHER ==
--- NOTE | 2016-11-02 12:34 | DIAGNOSTIC IMAGING REPORT ---
PROCEDURE: XR CHEST 1 VIEW INDICATION: SHORTNESS OF BREATH TECHNIQUE: Portable AP view 12:13 p.m. COMPARISON: Chest 10/16/2016 07/22/2016 and 05/22/1950 FINDINGS: Lungs are clear. Left pericardial fat pad. Cardiovascular structures are normal. Bony thorax is unremarkable. No significant interval change. IMPRESSION: 1. No acute changes
--- NOTE | 2016-11-02 13:34 | ED CLINICAL REPORT ---
Clinical Report - Physicians/Mid Levels [facility] [address], [place] [address] 11/02/2016 11:41 Patient: CHRISTINE SHEETS Time Seen: 11:54 Nov 02 2016. Arrived- By ambulance. Historian- patient and EMS personnel. CPT: ER phys charges level 4 plus (#[id number]). EKG interpretation (#[id number]). HISTORY OF PRESENT ILLNESS Chief Complaint: DYSPNEA. This started yesterday and is still present (worse). The dyspnea is described as moderate. The dyspnea is worsened by walking, exertion and being in a supine position, is improved by rest, is improved with oxygen and is improved with sitting upright. She has not had worsening of dyspnea with coughing. The patient has had a cough, fever, wheezing and dyspnea on exertion. She has had yellow sputum. There has been a change from baseline. No sweating episodes, chills, chest pain or discomfort or calf pain. No foot swelling, dizziness or palpitations. Similar symptoms previously: As bad. Diagnosis: pneumonia. Recent medical care: Not recently seen/assessed. REVIEW OF SYSTEMS The patient has had a nasal discharge, muscle aches and a sore throat but not had weight loss. No eye irritation, sinus drainage, nausea, vomiting or abdominal pain. No diarrhea, black stools, bloody stools, fainting episodes or difficulty with urination. No excessive urination, skin rash, enlarged lymph nodes or joint pain. All systems otherwise negative, except as recorded above. PAST HISTORY Neck Pain. Chest pain . Bronchospasm. Bronchitis. Hepatitis. Hypercholesterolemia. Hypertension. Memory impairment. Asthma. Corotid blockage right. ADDITIONAL SURGERIES: Adenoidectomy. 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 Cardiac cath 6 weeks ago: Judi Payne. Angiography. Appendectomy. Bladder Suspension. Cholecystectomy. Hysterectomy. Oophorectomy. Salpingectomy. Shoulder Surgery. Tonsillectomy. No history of heart disease. Medications: Requip Oral (Tablet 0.5 mg) 1 tablet, hs. Sertraline HCl Oral (Tablet 25 mg) 1 tablet, daily. Centrim silver 220mg day . Fish oil 1000mg BID. Losartan Potassium Oral 25 mg, daily. Melatonin Oral (Tablet 3 mg) 1 tablet, hs. Metoprolol Tartrate Oral 25 mg, bid. Omeprazole Oral 20 mg, daily. Pravastatin Sodium Oral 20 mg, at bedtime. Proventil inhaler prn . Advair 115/21 day, 2x a day. Allergy med otc day . ASA Oral 81mg (1 tablet every other day). Lasix Oral 40 mg, daily. Allergies: No Known Drug Allergy. SOCIAL HISTORY Never smoker. No alcohol use or drug use. ADDITIONAL NOTES The nursing notes have been reviewed. PHYSICAL EXAM Vital Signs: 11/02/2016 11:45 BP: 128/52. HR: 100. RR: 20. O2 saturation: 100%. Pain level now: 03/09. Appearance: Alert. Patient in mild distress. Eyes: Pupils equal, round and reactive to light. Eyes normal inspection. ENT: Dry mucous membranes present. Pharynx normal. Neck: Normal inspection. No jugular venous distention. CVS: Normal heart rate and rhythm. Heart sounds normal. Pulses normal. Respiratory: No respiratory distress. Expiratory mild bilateral wheezes anteriorly. Abdomen: Soft and nontender. Back: Normal inspection. Skin: Skin warm. Normal skin color. No rash. Extremities: Extremities exhibit normal ROM. No calf tenderness. No lower extremity edema. Neuro: Oriented X 3. No motor deficit. No sensory deficit. Reflexes normal. LABS, X-RAYS, AND EKG EKG: Normal sinus rhythm. Normal P waves. Normal QRS complex. Q waves in lead V1 and V2. Normal axis. Non-specific ST segment / T wave abnormalities. Prior EKG unavailable. The study has been interpreted contemporaneously. The study has been independently viewed by me. The EKG appears to be a good tracing. Chest X-ray: Normal Chest X-Ray. Laboratory Tests: UA-Culture if indicated: (CHANTEL: 11/02/2016 12:35) ( MsgRcvd 11/02/2016 13:09) Final results Test Result Flag Units (Reference) URINE COLOR YELLOW URINE APPEARANCE CLEAR URINE GLUCOSE NEGATIVE (NEGATIVE) URINE BILIRUBIN NEGATIVE (NEGATIVE) URINE KETONE TRACE (NEGATIVE) URINE SPECIFIC GRAVITY 1.010 (1.010-1.030) URINE PH 6.5 (5.0-8.0) URINE PROTEIN NEGATIVE (NEGATIVE) URINE UROBILINOGEN 1.0 EU/dL (0.2-1.0) URINE NITRITE NEGATIVE (NEGATIVE) URINE BLOOD NEGATIVE (NEGATIVE) URINE LEUK ESTERASE POSITIVE (NEGATIVE) URINE RBC NONE SEEN rbc/hpf (0-1) URINE WBC 10-15 wbc/hpf (0-1) URINE EPITHELIAL CELLS 1-3 EPI/hpf (0-5) URINE BACTERIA MODERATE (2+ TO 3+) (NONE SEEN) URINE COMMENT CULTURE INDICATED URINE CULTURES ARE SET-UP BASED ON THE FOLLOWING CRITERIA:POSITIVE NITRITEPOSITIVE LEUKOCYTE ESTERASEGREATER THAN 10 WHITE BLOOD CELLSMODERATE (2+) OR GREATER BACTERIA CBC w Diff: (CHANTEL: 11/02/2016 12:25) ( TngRcvd 11/02/2016 12:38) IP Test Result Flag Units (Reference) WHITE BLOOD COUNT 4.7 K/uL (4.5-11.5) RED BLOOD COUNT 3.86 L M/uL (4.00-5.20) HEMOGLOBIN 11.4 L gm/dL (12.0-16.0) HEMATOCRIT 33.7 L % (36.0-46.0) MEAN CELL VOLUME 87 fL (80-100) MEAN CORPUSCULAR HGB 30 pg (26-34) MEAN CORPUSCULAR HGB CONC 34 g/dL (31-37) RED CELL DISTRIBUTION WIDTH 14.4 % (11.6-14.8) NEUTROPHIL % 69.4 % (50-75) LYMPH % 16.7 L % (25-40) MONO % 7.9 % (3-14) EOSINOPHIL % 5.0 H % (0-4) BASOPHIL % 1.0 % (0-2) [id number]: (CHANTEL: 11/02/2016 12:25) ( TngRcvd 11/02/2016 12:41) Final results Test Result Flag Units (Reference) D-DIMER QUANTITATIVE 0.73 H ug/mLFEU (0.27-0.52) The primary value of this quantitative assay relates toits negative predictive value (i.e. exclusion) of pulmonaryembolism/deep vein thrombosis/DIC.Elevated levels of d-dimer may also occur with:, age, cancer, inflammation, liver disease,post-op, infection, hematoma, coronary disease, peripheralarteriopathy, bleeding disorders and thrombolytic treatment.Results should be correlated with other clinical andradiological data.Testing Methodology: Latex Immunoassay BNP: (CHANTEL: 11/02/2016 12:25) ( [facility] [place] 11/02/2016 12:57) Final results Test Result Flag Units (Reference) B-TYPE NATRIURETIC PEPTIDE 9.6 pg/ml (5-100) CHEM 13 PANEL: (CHANTEL: 11/02/2016 12:25) ( [facility] [place] 11/02/2016 13:03) IP Test Result Flag Units (Reference) GLUCOSE 103 mg/dL (70-110) BUN 15 mg/dL (7-18) CREATININE 0.9 mg/dL (0.6-1.3) Estimated GFR >60 mL/min Estimated GFR- >60 mL/min Note: Persistent reduction over 3 months in eGFR<60 mL/min/1.73 m2 defines CKD. Patients with eGFR values>=60 mL/min/1.73 m2 may also have CKD if evidence ofpersistent proteinuria. Additional information may be foundat [email or web address]. SODIUM 143 mmol/L (136-145) POTASSIUM 3.9 mmol/L (3.5-5.1) CHLORIDE 109 H mmol/L (98-107) CARBON DIOXIDE 27 mmol/L (21-32) CALCIUM 8.0 L mg/dL (8.5-10.1) TOTAL PROTEIN 6.2 L g/dL (6.4-8.2) ALBUMIN 3.2 L g/dL (3.3-5.0) BILIRUBIN, TOTAL 0.3 mg/dL (0.0-1.0) ALKALINE PHOSPHATASE 81 U/L (46-116) AST (SGOT) 24 U/L (15-37) ALT (SGPT) 31 U/L (12-78) MAGNESIUM 1.7 L mg/dL (1.8-2.4) CPK 45 U/L (24-260) Rapid Influenza Screen: (CHANTEL: 11/02/2016 12:25) ( MsgRcvd 11/02/2016 12:57) Final results SPECIMEN DESCRIPTION: SWAB Test Result Flag Units (Reference) RAPID INFLUENZA SCREEN CALLED TO: TERESITA IN ED -- DATE: 11/02/16 INFLUENZA A: NEGATIVE SCREEN FOR INFLUENZA A INFLUENZA B: POSITIVE SCREEN FOR INFLUENZA B . PROGRESS AND PROCEDURES Course of Care: 12:08 11/02/16. patient notes she's had dyspnea for the past 3 or 4 months. She was seen at [facility] ER for this and a CT angios showed an AVM. She was subsequently referred to pulmonary medicine at the [facility] for evaluation of this AVM. This was to see if there was enough of a shunt to decrease her oxygenation make her short of breath. It was also felt that the heart may be part of the problem causing her dyspnea so she saw Dr. Stewart rn picu at [facility] and subsequently had a catheterization. This was approximately 6 weeks ago and was read as a normal heart catheter other than high pulmonary pressures at a level of 30 according to the patient. The treatment for this is diuretics. Patient notes she does have bilateral carotid artery stenosis. This is being monitored. The patient has had increased shortness of breath over the last 24-36 hours. This is on top of her usual baseline dyspnea. She notes the medics felt she had a fever of 102. She hasn't noted a fever chills or Rigors at home. She has had a sensation on her left chest like "fluid" when she lays on her left side. This had its onset last night. She noticed more short of breath when she is supine and so she sleeps sitting up. She has not had any leg swelling. she's had a recent increasing cough that initially started dry with a clear sputum and then has been slightly less yellow over the last several hours. IV NS Albuterol HHN: Resolution of wheezing. Rocephin 2g IV for UTI,. Patient/family counseled. Disposition: Discharged. Condition: stable. CLINICAL IMPRESSION Acute urinary tract infection with cystitis. Influenza type B with upper respiratory infection. Acute fever Acute bronchospasm INSTRUCTIONS Take Tylenol (Acetaminophen) or Motrin (Ibuprofen) as needed for fever control. Take medication according to label instructions. No strenuous activity. Rest. Drink plenty of fluids. (Hold the lasix for 2 days.). Warnings: Further evaluation is necessary. GENERAL WARNINGS: Return or contact your physician immediately if your condition worsens or changes unexpectedly, if not improving as expected, or if other problems arise. Your Current Medications: CONTINUE TAKING THE FOLLOWING MEDICATIONS: Advair 115/21 day* : 2x a day. Allergy med otc day *. ASA Oral : 81mg, 1 tablet every other day. Centrim silver 220mg day *. Fish oil 1000mg BID*. Lasix Oral : 40 mg daily. Losartan Potassium Oral : 25 mg daily. Melatonin Oral : Tablet 3 mg, 1 tablet hs. Metoprolol Tartrate Oral : 25 mg bid. Omeprazole Oral : 20 mg daily. Pravastatin Sodium Oral : 20 mg at bedtime. Proventil inhaler prn *. Requip Oral : Tablet 0.5 mg, 1 tablet hs. Sertraline HCl Oral : Tablet 25 mg, 1 tablet daily. Prescription Medications: Albuterol HFA oral inhaler: inhale 2 puffs via spacer every 4 hours as needed for wheezing, difficulty breathing or shortness of breath, until symptoms improve. Dispense one (1) unit. No refill. Tamiflu 75 mg: take 1 capsule orally every 12 hours for 5 days. Dispense ten (10). No refills. Substitution is permissible. Septra DS 800 mg / 160 mg: take 1 tablet orally every 12 hours for 7 days. Dispense fourteen (14). No refills. Substitution is permissible. Follow-up: Follow up with your doctor in one week. Call for an appointment. Understanding of the discharge instructions verbalized by patient and family. (Electronically signed by Hong Faulkner MD 11/02/2016 19:52) Addenda for CHRISTINE SHEETS VisitID: [id number] Date: 11/02/2016 11/02/2016 15:49 Started bag #1 1000 mL IV Fluids IV NS (Saline); at 250 mL/hr over 4 hour(s) via site #1. Allergies verified and confirmed 5 rights. IV patency established. IV site checked: no pain, redness, or swelling. IV flushed thoroughly pre- and post-medication administration (IV #1, 1000mL NSS field start by EMS.). (Electronically signed by Enrique Mccurdy R.N. - 11/02/2016 15:49) 11/02/2016 16:12 Started bag #1 1000 mL IV Fluids IV NS (Saline); at 250 mL/hr over 4 hour(s) via site #1. Allergies verified and confirmed 5 rights. IV patency established. IV site checked: no pain, redness, or swelling. IV flushed thoroughly pre- and post-medication administration (IV #1, 1000mL NSS field start by EMS.). IV Fluids IV NS Discontinued: bag #1 infused upon discharge. Total amount infused: 900 mL. IV patency established. IV site checked: no pain, redness, or swelling. IV flushed thoroughly. (Electronically signed by Enrique Mccurdy R.N. - 11/02/2016 16:12)
--- NOTE | 2016-11-02 13:34 | ED CLINICAL REPORT ---
Clinical Report - Physicians/Mid Levels [facility] [address], [place] [address] 11/02/2016 11:41 Patient: CHRISTINE SHEETS Time Seen: 11:54 Nov 02 2016. Arrived- By ambulance. Historian- patient and EMS personnel. CPT: ER phys charges level 4 plus (#[id number]). EKG interpretation (#[id number]). HISTORY OF PRESENT ILLNESS Chief Complaint: DYSPNEA. This started yesterday and is still present (worse). The dyspnea is described as moderate. The dyspnea is worsened by walking, exertion and being in a supine position, is improved by rest, is improved with oxygen and is improved with sitting upright. She has not had worsening of dyspnea with coughing. The patient has had a cough, fever, wheezing and dyspnea on exertion. She has had yellow sputum. There has been a change from baseline. No sweating episodes, chills, chest pain or discomfort or calf pain. No foot swelling, dizziness or palpitations. Similar symptoms previously: As bad. Diagnosis: pneumonia. Recent medical care: Not recently seen/assessed. REVIEW OF SYSTEMS The patient has had a nasal discharge, muscle aches and a sore throat but not had weight loss. No eye irritation, sinus drainage, nausea, vomiting or abdominal pain. No diarrhea, black stools, bloody stools, fainting episodes or difficulty with urination. No excessive urination, skin rash, enlarged lymph nodes or joint pain. All systems otherwise negative, except as recorded above. PAST HISTORY Neck Pain. Chest pain . Bronchospasm. Bronchitis. Hepatitis. Hypercholesterolemia. Hypertension. Memory impairment. Asthma. Corotid blockage right. ADDITIONAL SURGERIES: Adenoidectomy. 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 Cardiac cath 6 weeks ago: Judi Payne. Angiography. Appendectomy. Bladder Suspension. Cholecystectomy. Hysterectomy. Oophorectomy. Salpingectomy. Shoulder Surgery. Tonsillectomy. No history of heart disease. Medications: Requip Oral (Tablet 0.5 mg) 1 tablet, hs. Sertraline HCl Oral (Tablet 25 mg) 1 tablet, daily. Centrim silver 220mg day . Fish oil 1000mg BID. Losartan Potassium Oral 25 mg, daily. Melatonin Oral (Tablet 3 mg) 1 tablet, hs. Metoprolol Tartrate Oral 25 mg, bid. Omeprazole Oral 20 mg, daily. Pravastatin Sodium Oral 20 mg, at bedtime. Proventil inhaler prn . Advair 115/21 day, 2x a day. Allergy med otc day . ASA Oral 81mg (1 tablet every other day). Lasix Oral 40 mg, daily. Allergies: No Known Drug Allergy. SOCIAL HISTORY Never smoker. No alcohol use or drug use. ADDITIONAL NOTES The nursing notes have been reviewed. PHYSICAL EXAM Vital Signs: 11/02/2016 11:45 BP: 128/52. HR: 100. RR: 20. O2 saturation: 100%. Pain level now: 03/09. Appearance: Alert. Patient in mild distress. Eyes: Pupils equal, round and reactive to light. Eyes normal inspection. ENT: Dry mucous membranes present. Pharynx normal. Neck: Normal inspection. No jugular venous distention. CVS: Normal heart rate and rhythm. Heart sounds normal. Pulses normal. Respiratory: No respiratory distress. Expiratory mild bilateral wheezes anteriorly. Abdomen: Soft and nontender. Back: Normal inspection. Skin: Skin warm. Normal skin color. No rash. Extremities: Extremities exhibit normal ROM. No calf tenderness. No lower extremity edema. Neuro: Oriented X 3. No motor deficit. No sensory deficit. Reflexes normal. LABS, X-RAYS, AND EKG EKG: Normal sinus rhythm. Normal P waves. Normal QRS complex. Q waves in lead V1 and V2. Normal axis. Non-specific ST segment / T wave abnormalities. Prior EKG unavailable. The study has been interpreted contemporaneously. The study has been independently viewed by me. The EKG appears to be a good tracing. Chest X-ray: Normal Chest X-Ray. Laboratory Tests: UA-Culture if indicated: (CHANTEL: 11/02/2016 12:35) ( MsgRcvd 11/02/2016 13:09) Final results Test Result Flag Units (Reference) URINE COLOR YELLOW URINE APPEARANCE CLEAR URINE GLUCOSE NEGATIVE (NEGATIVE) URINE BILIRUBIN NEGATIVE (NEGATIVE) URINE KETONE TRACE (NEGATIVE) URINE SPECIFIC GRAVITY 1.010 (1.010-1.030) URINE PH 6.5 (5.0-8.0) URINE PROTEIN NEGATIVE (NEGATIVE) URINE UROBILINOGEN 1.0 EU/dL (0.2-1.0) URINE NITRITE NEGATIVE (NEGATIVE) URINE BLOOD NEGATIVE (NEGATIVE) URINE LEUK ESTERASE POSITIVE (NEGATIVE) URINE RBC NONE SEEN rbc/hpf (0-1) URINE WBC 10-15 wbc/hpf (0-1) URINE EPITHELIAL CELLS 1-3 EPI/hpf (0-5) URINE BACTERIA MODERATE (2+ TO 3+) (NONE SEEN) URINE COMMENT CULTURE INDICATED URINE CULTURES ARE SET-UP BASED ON THE FOLLOWING CRITERIA:POSITIVE NITRITEPOSITIVE LEUKOCYTE ESTERASEGREATER THAN 10 WHITE BLOOD CELLSMODERATE (2+) OR GREATER BACTERIA CBC w Diff: (CHANTEL: 11/02/2016 12:25) ( PrgRcvd 11/02/2016 12:38) IP Test Result Flag Units (Reference) WHITE BLOOD COUNT 4.7 K/uL (4.5-11.5) RED BLOOD COUNT 3.86 L M/uL (4.00-5.20) HEMOGLOBIN 11.4 L gm/dL (12.0-16.0) HEMATOCRIT 33.7 L % (36.0-46.0) MEAN CELL VOLUME 87 fL (80-100) MEAN CORPUSCULAR HGB 30 pg (26-34) MEAN CORPUSCULAR HGB CONC 34 g/dL (31-37) RED CELL DISTRIBUTION WIDTH 14.4 % (11.6-14.8) NEUTROPHIL % 69.4 % (50-75) LYMPH % 16.7 L % (25-40) MONO % 7.9 % (3-14) EOSINOPHIL % 5.0 H % (0-4) BASOPHIL % 1.0 % (0-2) [id number]: (CHANTEL: 11/02/2016 12:25) ( PrgRcvd 11/02/2016 12:41) Final results Test Result Flag Units (Reference) D-DIMER QUANTITATIVE 0.73 H ug/mLFEU (0.27-0.52) The primary value of this quantitative assay relates toits negative predictive value (i.e. exclusion) of pulmonaryembolism/deep vein thrombosis/DIC.Elevated levels of d-dimer may also occur with:, age, cancer, inflammation, liver disease,post-op, infection, hematoma, coronary disease, peripheralarteriopathy, bleeding disorders and thrombolytic treatment.Results should be correlated with other clinical andradiological data.Testing Methodology: Latex Immunoassay BNP: (CHANTEL: 11/02/2016 12:25) ( [facility] [place] 11/02/[place] 12:57) Final results Test Result Flag Units (Reference) B-TYPE NATRIURETIC PEPTIDE 9.6 pg/ml (5-100) CHEM 13 PANEL: (CHANTEL: 11/02/2016 12:25) ( [facility] [place] 13:03) IP Test Result Flag Units (Reference) GLUCOSE 103 mg/dL (70-110) BUN 15 mg/dL (7-18) CREATININE 0.9 mg/dL (0.6-1.3) Estimated GFR >60 mL/min Estimated GFR- >60 mL/min Note: Persistent reduction over 3 months in eGFR<60 mL/min/1.73 m2 defines CKD. Patients with eGFR values>=60 mL/min/1.73 m2 may also have CKD if evidence ofpersistent proteinuria. Additional information may be foundat [email or web address]. SODIUM 143 mmol/L (136-145) POTASSIUM 3.9 mmol/L (3.5-5.1) CHLORIDE 109 H mmol/L (98-107) CARBON DIOXIDE 27 mmol/L (21-32) CALCIUM 8.0 L mg/dL (8.5-10.1) TOTAL PROTEIN 6.2 L g/dL (6.4-8.2) ALBUMIN 3.2 L g/dL (3.3-5.0) BILIRUBIN, TOTAL 0.3 mg/dL (0.0-1.0) ALKALINE PHOSPHATASE 81 U/L (46-116) AST (SGOT) 24 U/L (15-37) ALT (SGPT) 31 U/L (12-78) MAGNESIUM 1.7 L mg/dL (1.8-2.4) CPK 45 U/L (24-260) Rapid Influenza Screen: (CHANTEL: 11/02/2016 12:25) ( MsgRcvd 11/02/2016 12:57) Final results SPECIMEN DESCRIPTION: SWAB Test Result Flag Units (Reference) RAPID INFLUENZA SCREEN CALLED TO: TERESITA IN ED -- DATE: 11/02/16 INFLUENZA A: NEGATIVE SCREEN FOR INFLUENZA A INFLUENZA B: POSITIVE SCREEN FOR INFLUENZA B . PROGRESS AND PROCEDURES Course of Care: 12:08 11/02/16. patient notes she's had dyspnea for the past 3 or 4 months. She was seen at [facility] ER for this and a CT angios showed an AVM. She was subsequently referred to pulmonary medicine at the [facility] for evaluation of this AVM. This was to see if there was enough of a shunt to decrease her oxygenation make her short of breath. It was also felt that the heart may be part of the problem causing her dyspnea so she saw Dr. Stewart metallurgist helper at [facility] and subsequently had a catheterization. This was approximately 6 weeks ago and was read as a normal heart catheter other than high pulmonary pressures at a level of 30 according to the patient. The treatment for this is diuretics. Patient notes she does have bilateral carotid artery stenosis. This is being monitored. The patient has had increased shortness of breath over the last 24-36 hours. This is on top of her usual baseline dyspnea. She notes the medics felt she had a fever of 102. She hasn't noted a fever chills or Rigors at home. She has had a sensation on her left chest like "fluid" when she lays on her left side. This had its onset last night. She noticed more short of breath when she is supine and so she sleeps sitting up. She has not had any leg swelling. she's had a recent increasing cough that initially started dry with a clear sputum and then has been slightly less yellow over the last several hours. IV NS Albuterol HHN: Resolution of wheezing. Rocephin 2g IV for UTI,. Patient/family counseled. Disposition: Discharged. Condition: stable. CLINICAL IMPRESSION Acute urinary tract infection with cystitis. Influenza type B with upper respiratory infection. Acute fever Acute bronchospasm INSTRUCTIONS Take Tylenol (Acetaminophen) or Motrin (Ibuprofen) as needed for fever control. Take medication according to label instructions. No strenuous activity. Rest. Drink plenty of fluids. (Hold the lasix for 2 days.). Warnings: Further evaluation is necessary. GENERAL WARNINGS: Return or contact your physician immediately if your condition worsens or changes unexpectedly, if not improving as expected, or if other problems arise. Your Current Medications: CONTINUE TAKING THE FOLLOWING MEDICATIONS: Advair 115/21 day* : 2x a day. Allergy med otc day *. ASA Oral : 81mg, 1 tablet every other day. Centrim silver 220mg day *. Fish oil 1000mg BID*. Lasix Oral : 40 mg daily. Losartan Potassium Oral : 25 mg daily. Melatonin Oral : Tablet 3 mg, 1 tablet hs. Metoprolol Tartrate Oral : 25 mg bid. Omeprazole Oral : 20 mg daily. Pravastatin Sodium Oral : 20 mg at bedtime. Proventil inhaler prn *. Requip Oral : Tablet 0.5 mg, 1 tablet hs. Sertraline HCl Oral : Tablet 25 mg, 1 tablet daily. Prescription Medications: Albuterol HFA oral inhaler: inhale 2 puffs via spacer every 4 hours as needed for wheezing, difficulty breathing or shortness of breath, until symptoms improve. Dispense one (1) unit. No refill. Tamiflu 75 mg: take 1 capsule orally every 12 hours for 5 days. Dispense ten (10). No refills. Substitution is permissible. Septra DS 800 mg / 160 mg: take 1 tablet orally every 12 hours for 7 days. Dispense fourteen (14). No refills. Substitution is permissible. Follow-up: Follow up with your doctor in one week. Call for an appointment. Understanding of the discharge instructions verbalized by patient and family. (Electronically signed by Hong Faulkner MD 11/02/2016 19:52) Addenda for CHRISTINE SHEETS VisitID: [id number] Date: 11/02/2016 11/02/2016 15:49 Started bag #1 1000 mL IV Fluids IV NS (Saline); at 250 mL/hr over 4 hour(s) via site #1. Allergies verified and confirmed 5 rights. IV patency established. IV site checked: no pain, redness, or swelling. IV flushed thoroughly pre- and post-medication administration (IV #1, 1000mL NSS field start by EMS.). (Electronically signed by Enrique Mccurdy R.N. - 11/02/2016 15:49) 11/02/2016 16:12 Started bag #1 1000 mL IV Fluids IV NS (Saline); at 250 mL/hr over 4 hour(s) via site #1. Allergies verified and confirmed 5 rights. IV patency established. IV site checked: no pain, redness, or swelling. IV flushed thoroughly pre- and post-medication administration (IV #1, 1000mL NSS field start by EMS.). IV Fluids IV NS Discontinued: bag #1 infused upon discharge. Total amount infused: 900 mL. IV patency established. IV site checked: no pain, redness, or swelling. IV flushed thoroughly. (Electronically signed by Enrique Mccurdy R.N. - 11/02/2016 16:12)
--- NOTE | 2016-11-02 13:34 | ED ORDER SUMMARY ---
..... Patient: CHRISTINE SHEETS OrderSheet [facility] VisitID: [id number] [address] [place] [address] 71y, F Registration Date/Time: 11/02/2016 ORDER SHEET Weight: 77.1 kg Allergies: No Known Drug Allergy GENERAL ORDERS: Blood Culture (No) (N/A) Urgent (12:11/02/2016 Clive GAN) (Ack 12:11 Ольга) (12:12 Ramiro R.N.) Chest 1V Urgent (12:11/02/2016 Clive GAN) (Ack 12:11 Ольга) (12:44 DDeanick R.N.) Shaker Operator (Continuous) (:11/02/2016 Clive GAN) (12:11 Ramiro R.N.) Old Records ([facility] a few months ago with CTA.) (12:11/02/2016 Clive GAN) (Ack 12:11 Ольга) (12:24 Ольга) Cardiac Panel Stat (12:11/02/2016 Clive GAN) (Ack 12:11 Ольга) (12:12 Ramiro R.N.) BNP Urgent (12:11/02/2016 Clive GAN) (Ack 12:11 Ольга) (12:12 Ramiro R.N.) D-Dimer Urgent (12:11/02/2016 Clive GAN) (Ack 12:11 Ольга) (12:12 Ramiro R.N.) UA-Culture if indicated Urgent (12:11/02/2016 Clive GAN) (Ack 12:11 Ольга) (14:17 Ramiro R.N.) TSH Urgent (12:11/02/2016 Clive GAN) (Ack 12:11 Оьлга) (12:12 Ramiro R.N.) Oxygen (2 L/min) (NC) (12:11/02/2016 Clive GAN) (12:11 Ramiro R.N.) Pulse oximeter (12:11/02/2016 Clive GAN) (12:11 Ramiro BarkleyN.) EKG - ER Stat (12:07 11/02/2016 Clive GAN) (Ack 12:11 Ольга) (12:11 Ramiro R.N.) Rapid Influenza Screen (Nasal Pharyngeal) (swab) Urgent (12:12 11/02/2016 Clive GAN) (Ack 12:26 Ольга) (14:17 Ramiro R.N.) MEDICATION ORDERS: Albuterol Neb Tx 2.5 mg (NOW, HHN) (12:22 11/02/2016 Clive GAN) (12:35 cCarson) Acetaminophen PO 1,000 mg (NOW) (15:14 11/02/2016 Ramiro Lopez. verbal order read back to Clive GAN) (15:19 Ramiro BarkleyN.) IV FLUIDS: IV Saline Lock (12:07 11/02/2016 Clive GAN) (14:31 Adán R.N.) Rocephin IV 2 gm/50mL (NOW) (13:21 11/02/2016 Clive GAN) (14:04 Ramiro R.N.) ORDER SHEET NOTES: [Electronically signed by Mai Swain R.N. (15:26 11/02/2016)] [Electronically signed by Hong Faulkner MD (19:52 11/02/2016)] [Electronically locked/signed by Mai Swain R.N. (15:26 11/02/2016)]
--- NOTE | 2016-11-02 13:34 | ED NURSING NOTES ---
Clinical Report - Nurses [facility] [address] [place] [address] 11/02/2016 11:41 Patient: CHRISTINE SHEETS TRIAGE Triage time 11:45 Nov 02 2016. Acuity: LEVEL 3. Chief Complaint: SHORTNESS OF BREATH, DIFFICULTY BREATHING and WHEEZING. Alert. TALITA COMA SCORE: Talita Coma Scale: 15- eyes open spontaneously (4); best verbal response- oriented x 4 (5); best motor response- obeys commands (6). --11:58 Enrique Mccurdy R.N. 11:45 11/02/16. BP: 128/52. HR: 100. RR: 20. O2 saturation: 100% on nasal cannula at 2 liters/minute. Pain level now: 6/10. Additional comments: TREJO. --11:58 Enrique Mccurdy R.N. 12:02 11/02/16. Temp: 101.3 F (oral). --12:03 Enrique Mccurdy R.N. Weight: 77.1 kg. Height/Length: 60 inches Per Patient. BMI: 33.2. --11:46 Enrique Mccurdy R.N. Medications Advair 115/21 day, 2x a day. Allergy med otc day . ASA Oral 81mg (1 tablet every other day). Lasix Oral 40 mg, daily. --11:46 Enrique Mccurdy R.N. Centrim silver 220mg day . Fish oil 1000mg BID. Losartan Potassium Oral 25 mg, daily. Melatonin Oral (Tablet 3 mg) 1 tablet, hs. Metoprolol Tartrate Oral 25 mg, bid. Omeprazole Oral 20 mg, daily. Pravastatin Sodium Oral 20 mg, at bedtime. Proventil inhaler prn . --11:46 Enrique Mccurdy R.N. Requip Oral (Tablet 0.5 mg) 1 tablet, hs. Sertraline HCl Oral (Tablet 25 mg) 1 tablet, daily. --11:46 Enrique Mccurdy R.N. The following entry was struck and corrected by Enrique Mccurdy R.N., 12:10 (11/02/16) Reason for correction - other(correction). <<STRICKEN ENTRY-- Lasix Oral, daily (unknonwn dose, just started by Cardio). --11:46 Enrique Mccurdy R.N. --END STRIKE>>. Allergies No Known Drug Allergy. --11:46 Enrique Mccurdy R.N. Medication/allergy information source: the patient. --11:58 Enrique Mccurdy R.N. History Historian: EMS and patient. Arrived ([facility]). ( Increasingly SOB associated with wheezing and a productive cough and dizziness.). This started yesterday. She has had a cough and wheezing. Treatment RECORD PRODUCER: (Using her MDI Albuterol. Theraflu "Cold and Flu."). PAST MEDICAL HX: Immunizations: status is unknown. The patient is post-menopausal. SOCIAL HX: Never smoker. No alcohol use or drug use. No infectious disease exposure. ABUSE ASSESSMENT: No report of abuse. FALL RISK ASSESSMENT: Fall risk assessment completed. No fall risk identified. NUTRITIONAL RISK ASSESSMENT: The nutritional risk assessment revealed no deficiencies. FUNCTIONAL ASSESSMENT: Functional assessment: no impairments noted. LEARNING NEEDS ASSESSMENT: The learning needs assessment revealed no barriers. SKIN INTEGRITY ASSESSMENT: Skin integrity risk assessment completed. No skin integrity risk identified. --11:58 Enrique Mccurdy R.N. PROBLEMS: Neck Pain. Chest pain . Bronchospasm. Bronchitis. Hepatitis. Hypercholesterolemia. Hypertension. Memory impairment. Asthma. Corotid blockage right. --11:55 Enrique Mccurdy R.N. ADDITIONAL SURGERIES: Adenoidectomy. Angiography. Appendectomy. Bladder Suspension. Cholecystectomy. Hysterectomy. Oophorectomy. Salpingectomy. Shoulder Surgery. Tonsillectomy. --11:55 Enrique Mccurdy R.N. Interventions ID band on patient. To treatment room. --11:58 Enrique Mccurdy R.N. PHYSICAL ASSESSMENT To room via stretcher. GENERAL / NEURO / PSYCH: Alert. Oriented X 4. HEENT: Mucous membranes are pink. RESPIRATORY: Mild respiratory distress. CVS: Normal sinus rhythm noted. Capillary refill less than 2 seconds. GI / : Abdomen soft and nontender. Bowel sounds within normal limits. SKIN: Skin is warm and dry. --12:00 Enrique Mccurdy R.N. NURSING PROGRESS NOTES Oxygen administered by nasal cannula at 2 liters. Patient gowned. Reassurance given to the patient and patient's family. Patient identifiers checked. Call light placed in reach. Side rails up x 2. Bed placed in lowest position. Brakes of bed on. Patient ready for evaluation- chart flagged and ED physician notified. --12:00 Enrique Mccurdy R.N. 12:35 11/02/2016 Albuterol Neb TX Nebulizer 1 unit dose given. --12:35 Breanne Adams EKG time: (11:53). EKG was performed by a tech and shown to the ED physician. --12:40 Michael Carrion 11:45 11/02/2016 Site #1 accessed indwelling PIV line in the right antecubital space using a 20g needle (Field Start by EMS). --14:04 Enrique Mccurdy R.N. 12:35 11/02/16. Patient ID band checked for patient name, birthdate and medical record number: patient confirmed. Instructions provided to collect clean catch urine and patient verbalized understanding. Clean catch urine collected with return of yellow-colored clear urine; odor is normal; sample sent to lab for urinalysis and culture. Specimen labeled in the presence of the patient. --13:15 Enrique Mccurdy R.N. 13:00 11/02/16. Critical value relayed to ED by Content Checker. Critical value received by Enrique Mccurdy RN. Critical value read back. Provider notifed of critical value (Positive "B" Flu Swab). --13:14 Enrique Mccurdy R.N. 12:40. Patient ID band checked for patient name, birthdate and medical record number: patient confirmed. Flu swab obtained by RN via nasal pharyngeal swab. Labeled in the presence of the patient and sent to lab. --13:16 Enrique Mccurdy R.N. 14:04 11/02/2016 Started 2 gm of Rocephin (CefTRIAXone Sodium) IVPB in bag #1 50 mL; at 100 mL/hr over 30 minute(s) via site #1 via IV pump. Allergies verified and confirmed 5 rights. IV patency established. IV site checked: no pain, redness, or swelling. IV flushed thoroughly pre- and post-medication administration. --14:04 Enrique Mccurdy R.N. 12:45 11/02/16. BP: 128/52. HR: 101. RR: 18. O2 saturation: 100% on nasal cannula at 2 liters/minute. Pain level now: 0/10. --14:12 Enrique Mccurdy R.N. 13:15 11/02/16. BP: 117/57. HR: 97. RR: 18. O2 saturation: 97% on nasal cannula at 2 liters/minute. Pain level now: 0/10. --14:14 Enrique Mccurdy R.N. 14:08 11/02/2016 Started 2 gm of Rocephin (CefTRIAXone Sodium) IVPB in bag #1 50 mL; at 150 mL/hr over 20 minute(s) via site #1 via IV pump. Allergies verified and confirmed 5 rights. IV patency established. IV site checked: no pain, redness, or swelling. IV flushed thoroughly pre- and post-medication administration. --14:18 Enrique Mccurdy R.N. 14:00 11/02/16. BP: 116/38. HR: 105. RR: 18. O2 saturation: 95% on room air. Pain level now: 0/10. --14:20 Enrique Mccurdy R.N. 14:26 11/02/2016 Rocephin IVPB Discontinued: bag #1 completed. Total amount infused: 50 mL. --14:31 Mai Swain R.N. 14:15 11/02/16. BP: 107/38. HR: 108. RR: 21. O2 saturation: 92% on room air. --14:43 Mai Swain R.N. 14:15. Reassessment after fluids administered and medication administered. She is resting quietly. SKIN: Skin is warm and dry. --14:43 Mai Swain R.N. 14:47 11/02/2016 Acetaminophen (APAP) PO 1000 mg given. Allergies verified and confirmed 5 rights. --15:19 Enrique Mccurdy R.N. 14:55. Reassessment after fluids administered and medication administered. She is calm. Overall patient status is improved- she states feels better. CVS: Cardiac rhythm: sinus rhythm. SKIN: Skin is warm and dry. --15:23 Mai Swain R.N. 14:55 11/02/2016 Site #1 removed upon discharge. Catheter intact. Bandaid applied. --15:24 Mai Swain R.N. DISPOSITION / DISCHARGE 14:45 11/02/16. BP: 108/41. HR: 110. RR: 18. O2 saturation: 95% on room air. Temp: 101.1 F. Pain level now: 0/10. --15:13 Enrique Mccurdy R.N. Departure time: 1500. --15:13 Enrique Mccurdy R.N. Departure time: 1455. Condition at departure: stable. Fall risk assessment completed. Risk factors identified include patient age greater than 65 years and impairment of mobility. Fall interventions initiated. Patient placed in wheelchair. No learning barriers present. Discharge instructions provided and reviewed with the patient. Reviewed medication(s). Prescription(s) given to the fast food crew lead. Parent verbalized understanding. Written instructions provided in [place] [employer]. The patient was discharged home and accompanied by family. She left the Emergency Department in a wheelchair and via private vehicle. Family member driving. --15:22 Mai Swain R.N. Locked/Released at 11/02/2016 15:26 by Mai Swain R.N.
--- NOTE | 2016-11-02 13:34 | ED ORDER SUMMARY ---
..... Patient: CHRISTINE SHEETS OrderSheet [facility] VisitID: [id number] [address] [place] [address] 71y, F Registration Date/Time: 11/02/2016 ORDER SHEET Weight: 77.1 kg Allergies: No Known Drug Allergy GENERAL ORDERS: Blood Culture (No) (N/A) Urgent (12:11/02/2016 Clive GAN) (Ack 12:11 Ольга) (12:12 Raimro R.N.) Chest 1V Urgent (12:11/02/2016 Clive GAN) (Ack 12:11 Ольга) (12:44 DDeanick R.N.) Finance Administrator (Continuous) (:11/02/2016 Clive GAN) (12:11 Ramiro R.N.) Old Records ([facility] ER a few months ago with CTA.) (12:11/02/2016 Clive GAN) (Ack 12:11 Ольга) (12:24 Ольга) Cardiac Panel Stat (12:11/02/2016 Clive GAN) (Ack 12:11 Ольга) (12:12 Ramiro R.N.) BNP Urgent (12:11/02/2016 Clive GAN) (Ack 12:11 Ольга) (12:12 Raimro R.N.) D-Dimer Urgent (12:11/02/2016 Clive GAN) (Ack 12:11 Ольга) (12:12 Ramiro R.N.) UA-Culture if indicated Urgent (12:11/02/2016 Clive GAN) (Ack 12:11 Ольга) (14:17 Ramiro R.N.) TSH Urgent (12:11/02/2016 Clive GAN) (Ack 12:11 Ольга) (12:12 Ramiro R.N.) Oxygen (2 L/min) (NC) (12:11/02/2016 Clive GAN) (12:11 Ramiro R.N.) Pulse oximeter (12:11/02/2016 Clive GAN) (12:11 Ramiro BarkleyN.) EKG - ER Stat (12:07 11/02/2016 Clive GAN) (Ack 12:11 Ольга) (12:11 Ramiro R.N.) Rapid Influenza Screen (Nasal Pharyngeal) (swab) Urgent (12:12 11/02/2016 Clive GAN) (Ack 12:26 Ольга) (14:17 Ramiro R.N.) MEDICATION ORDERS: Albuterol Neb Tx 2.5 mg (NOW, HHN) (12:22 11/02/2016 Clive GAN) (12:35 cCarson) Acetaminophen PO 1,000 mg (NOW) (15:14 11/02/2016 Ramiro Lopez. verbal order read back to Clive GAN) (15:19 Ramiro BarkleyN.) IV FLUIDS: IV Saline Lock (12:07 11/02/2016 Clive GAN) (14:31 Adán R.N.) Rocephin IV 2 gm/50mL (NOW) (13:21 11/02/2016 Clive GAN) (14:04 Ramiro R.N.) ORDER SHEET NOTES: [Electronically signed by Mai Swain R.N. (15:26 11/02/2016)] [Electronically signed by Hong Faulkner MD (19:52 11/02/2016)] [Electronically locked/signed by Mai Swain R.N. (15:26 11/02/2016)]
--- NOTE | 2016-11-02 19:52 | ED MAR SUMMARY ---
..... Medication Administration Record [facility] [address] [place] [address] Patient: CHRISTINE SHEETS Visit ID: [id number] 71y, F Weight: 77.1 kg Height/Length: 60 in BMI: 33.2 ALLERGIES: No Known Drug Allergy Start 11:45 11/02/2016 Enrique Mccurdy R.N., Stop 14:55 11/02/2016 Enrique Mccurdy R.N. Medication Administered: IV NS (SALINE), Dose: IV Fluids over 4 hour(s), Rate: 250 mL/hr, Dispensed: 1000 mL bag, Site: #1 right AC. Medication Ordered: IV NS : initial bolus none -, then 250 mL/hr (NOW). Given 12:35 11/02/2016 Breanne Adams, Medication Administered: ALBUTEROL [NEB TX], Dose: 1 unit dose Nebulizer Neb TX. Medication Ordered: Albuterol Neb Tx 2.5 mg (NOW, [facility]). Start 14:04 11/02/2016 Enrique Mccurdy R.N. Medication Administered: ROCEPHIN [IVPB] (CEFTRIAXONE SODIUM), Dose: 2 gm IVPB over 30 minute(s), Rate: 100 mL/hr, Dispensed: 50 mL bag, Site: #1 right AC. Medication Ordered: Rocephin IV 2 gm/50mL (NOW). Start 14:08 11/02/2016 Enrique Mccurdy R.N., Stop 14:26 11/02/2016 Mai Swain R.N. Medication Administered: ROCEPHIN [IVPB] (CEFTRIAXONE SODIUM), Dose: 2 gm IVPB over 20 minute(s), Rate: 150 mL/hr, Dispensed: 50 mL bag, Site: #1 right AC. Medication Ordered: Rocephin IV 2 gm/50mL (NOW). Given 14:47 11/02/2016 Enrique Mccurdy R.N. Medication Administered: ACETAMINOPHEN [PO] (APAP), Dose: 1000 mg PO. Medication Ordered: Acetaminophen PO 1,000 mg (NOW).
--- NOTE | 2016-11-02 19:52 | ED MED RECONCILIATION SUMMARY ---
Patient: CHRISTINE SHEETS Medication Reconciliation Report [facility] VisitID: [id number] [address] [place] [address] 71y, F Registration Date/Time: 11/02/2016 Weight: 77.1 kg Height/Length: 60 in. BMI: 33.2 ALLERGIES: No Known Drug Allergy The patient's Home Medications are listed below: CONTINUE TAKING THE FOLLOWING MEDICATIONS: Advair 115/21 day, 2x a day Allergy med otc day ASA Oral 81mg, 1 tablet every other day Centrim silver 220mg day Fish oil 1000mg BID Lasix Oral 40 mg, daily Losartan Potassium Oral 25 mg, daily Melatonin Oral (3 mg) 1 tablet, hs Metoprolol Tartrate Oral 25 mg, bid Omeprazole Oral 20 mg, daily Pravastatin Sodium Oral 20 mg, at bedtime Proventil inhaler prn Requip Oral (0.5 mg) 1 tablet, hs Sertraline HCl Oral (25 mg) 1 tablet, daily The source(s) of the original Home Medication information: patient The following Medications were given to the patient in the Emergency Department: Albuterol [Neb Tx] Neb TX 1 unit dose, administered: 11/02/2016 12:35:00 PM Rocephin [IVPB] IVPB bolus 0, then 2 gm 100 mL/hr, administered: 11/02/2016 2:04:00 PM Rocephin [IVPB] IVPB bolus 0, then 2 gm 150 mL/hr, administered: 11/02/2016 2:08:00 PM Acetaminophen [PO] PO 1000 mg, administered: 11/02/2016 2:47:00 PM IV NS IV Fluids bolus 0, then 250 mL/hr, administered: 11/02/2016 11:45:00 AM The following Medications were prescribed to the patient: Albuterol HFA oral inhaler: inhale 2 puffs via spacer every 4 hours as needed for wheezing, difficulty breathing or shortness of breath, until symptoms improve. Dispense one (1) unit. No refill. -- Hong Faulkner MD Tamiflu 75 mg: take 1 capsule orally every 12 hours for 5 days. Dispense ten (10). No refills. Substitution is permissible. -- Hong Faulkner MD Septra DS 800 mg / 160 mg: take 1 tablet orally every 12 hours for 7 days. Dispense fourteen (14). No refills. Substitution is permissible. -- Hong Faulkner MD
--- NOTE | 2016-11-02 19:52 | ED MAR SUMMARY ---
..... Medication Administration Record [facility] [address] [place] [address] Patient: CHRISTINE SHEETS Visit ID: [id number] 71y, F Weight: 77.1 kg Height/Length: 60 in BMI: 33.2 ALLERGIES: No Known Drug Allergy Start 11:45 11/02/2016 Enrique Mccurdy R.N., Stop 14:55 11/02/2016 Enrique Mccurdy R.N. Medication Administered: IV NS (SALINE), Dose: IV Fluids over 4 hour(s), Rate: 250 mL/hr, Dispensed: 1000 mL bag, Site: #1 right AC. Medication Ordered: IV NS : initial bolus none -, then 250 mL/hr (NOW). Given 12:35 11/02/2016 Breanne Adams, Medication Administered: ALBUTEROL [NEB TX], Dose: 1 unit dose Nebulizer Neb TX. Medication Ordered: Albuterol Neb Tx 2.5 mg (NOW, [facility]). Start 14:04 11/02/2016 Enrique Mccurdy R.N. Medication Administered: ROCEPHIN [IVPB] (CEFTRIAXONE SODIUM), Dose: 2 gm IVPB over 30 minute(s), Rate: 100 mL/hr, Dispensed: 50 mL bag, Site: #1 right AC. Medication Ordered: Rocephin IV 2 gm/50mL (NOW). Start 14:08 11/02/2016 Enrique Mccurdy R.N., Stop 14:26 11/02/2016 Mai Swain R.N. Medication Administered: ROCEPHIN [IVPB] (CEFTRIAXONE SODIUM), Dose: 2 gm IVPB over 20 minute(s), Rate: 150 mL/hr, Dispensed: 50 mL bag, Site: #1 right AC. Medication Ordered: Rocephin IV 2 gm/50mL (NOW). Given 14:47 11/02/2016 Enrique Mccurdy R.N. Medication Administered: ACETAMINOPHEN [PO] (APAP), Dose: 1000 mg PO. Medication Ordered: Acetaminophen PO 1,000 mg (NOW).
--- NOTE | 2016-11-02 19:52 | ED DISCHARGE INSTRUCTIONS ---
Patient: CHRISTINE SHEETS General Instructions [facility] VisitID: [id number] [address] [place] [address] 71y, F Registration Date/Time: 11/02/2016 Acute urinary tract infection with cystitis. Influenza type B with upper respiratory infection. Acute fever Acute bronchospasm INSTRUCTIONS Take Tylenol (Acetaminophen) or Motrin (Ibuprofen) as needed for fever control. Take medication according to label instructions. No strenuous activity. Rest. Drink plenty of fluids. (Hold the lasix for 2 days.). Warnings: Further evaluation is necessary. GENERAL WARNINGS: Return or contact your physician immediately if your condition worsens or changes unexpectedly, if not improving as expected, or if other problems arise. Your Current Medications: CONTINUE TAKING THE FOLLOWING MEDICATIONS: Advair / day* : 2x a day. Allergy med otc day *. ASA Oral : 81mg, 1 tablet every other day. Centrim silver 220mg day *. Fish oil 1000mg BID*. Lasix Oral : 40 mg daily. Losartan Potassium Oral : 25 mg daily. Melatonin Oral : Tablet 3 mg, 1 tablet hs. Metoprolol Tartrate Oral : 25 mg bid. Omeprazole Oral : 20 mg daily. Pravastatin Sodium Oral : 20 mg at bedtime. Proventil inhaler prn *. Requip Oral : Tablet 0.5 mg, 1 tablet hs. Sertraline HCl Oral : Tablet 25 mg, 1 tablet daily. Prescription Medications: Albuterol HFA oral inhaler: inhale 2 puffs via spacer every 4 hours as needed for wheezing, difficulty breathing or shortness of breath, until symptoms improve. Dispense one (1) unit. No refill. Tamiflu 75 mg: take 1 capsule orally every 12 hours for 5 days. Dispense ten (10). No refills. Substitution is permissible. Septra DS 800 mg / 160 mg: take 1 tablet orally every 12 hours for 7 days. Dispense fourteen (14). No refills. Substitution is permissible. Follow-up: Follow up with your doctor in one week. Call for an appointment. Understanding of the discharge instructions verbalized by patient and family. ADDITIONAL INFORMATION Febrile Illness, Uncertain Cause (Adult) You have a fever, but the cause is not certain. A fever is a natural reaction of the body to an illness such as infections due to a virus or bacteria. In most cases, the temperature itself is not harmful. It actually helps the body fight infections. A fever does not need to be treated unless you feel very uncomfortable. Sometimes a fever can be an early sign of a more serious infection. Therefore, you should watch for the signs listed below. Home Care: If signs and symptoms are severe, rest at home for the first 2-3 days. When you resume activity, don't let yourself get too tired. Stay away from cigarette smoke (yours and other peoples). You may use acetaminophen (Tylenol) or ibuprofen (Motrin, Advil) to control fever or pain, unless another medicine was prescribed. NOTE: If you have chronic liver or kidney disease or ever had a stomach ulcer or GI bleeding, talk with your doctor before using these medicines. (Aspirin should never be used in anyone under 18 years of age who is ill with a fever. It may cause severe liver damage.) Your appetite may be poor, so a light diet is fine. Avoid dehydration by drinking 6-8 glasses of fluid per day (water, sport drinks such as Gatorade, sodas without caffeine, juices, tea, soup). Extra fluid will help loosen secretions in the nose and lungs. Ysyx-ahp-fvehmjv products will not shorten the duration of the illness but may be helpful for the following symptoms: cough (Robitussin DM); sore throat (Chloraseptic lozenges or spray); nasal and sinus congestion (Actifed or Sudafed). NOTE: Do not use decongestants if you have high blood pressure. Follow Up with your doctor or as advised if you do not start to improve over the next week. Get Prompt Medical Attention if any of the following occur: Cough with lots of colored sputum (mucus) or blood in your sputum Chest pain, shortness of breath, wheezing or difficulty breathing Severe headache, face, neck, throat or ear pain Feeling drowsy or confused Abdominal pain, repeated vomiting or diarrhea Joint pain or a new rash Burning when urinating Fever of 100.4F (38C) oral or higher, not better with fever medication Feeling weak or dizzy Convulsion Bronchitis With Wheezing (Viral Or Bacterial: Adult) Bronchitis is an infection of the air passages. It often occurs during the common cold and is usually caused by a virus. Symptoms include cough with mucus (phlegm) and low-grade fever. If there is a lot of inflammation, air flow is restricted. The air passages may also go into spasm, especially if you are an asthmatic. This causes wheezing and difficulty breathing even in persons who do not have asthma. Bronchitis usually lasts 7-14 days. The wheezing should improve with treatment during the first week. An inhaler is often prescribed to relax the air passages and stop wheezing. Antibiotics will be prescribed if your doctor thinks there is also a secondary bacterial infection. Home Care: If symptoms are severe, rest at home for the first 2-3 days. When resuming activity, don't let yourself become overly tired. Do not smoke and avoid exposure to the smoke of others. You may use acetaminophen (Tylenol) or ibuprofen (Motrin, Advil) to control fever, unless another medicine was prescribed. [NOTE: If you have chronic liver or kidney disease or ever had a stomach ulcer or GI bleeding, talk with your doctor before using these medicines.] (Aspirin should never be used in anyone under 18 years of age who is ill with a fever. It may cause severe liver damage.) Your appetite may be poor so a light diet is fine. Avoid dehydration by drinking 6-8 glasses of fluids per day (water, soft, drinks, juices, tea, soup, etc.). Extra fluids will help loosen secretions in the lungs. Pyrz-whk-lnmkolp cough medicines that containdextromethorphan(such as Robitussin DM) and decongestants (Actifed or Sudafed) may help relieve cough and congestion. [NOTE: Do not use decongestants if you have high blood pressure.] If you were given an inhaler, use it exactly as directed. If you need to use it more often than prescribed, your condition may be worsening. Contact your doctor or this facility. If prescribed, finish all antibiotic medicine, even if you are feeling better after only a few days. Follow Up With Your Doctor Or As Directed If You Are Not Starting To Feel Better After Three Days. [NOTE: If you are age 65 or older, or if you have chronic asthma or COPD, we recommend a pneumococcal vaccination every five years and a yearly influenza vaccination (flu shot) every . Ask your doctor about this. If you had an x-ray or EKG (electrocardiogram), it will be reviewed by a specialist. You will be notified of any new findings that may affect your care.] Get Prompt Medical Attention If Any Of The Following Occur: Increased wheezing, shortness of breath or pain with breathing Fever of 100.4F (38C) oral or higher, not better with fever medication Coughing up blood or increasing amounts of colored sputum Weakness, drowsiness, headache, facial pain, ear pain or a stiff neck Lower leg swelling, tenderness, redness or pain Bladder Infection,Female (Adult) A bladder infection ("cystitis" or "UTI") usually causes a constant urge to urinate and a burning when passing urine. Urine may be cloudy, smelly or dark. There may be pain in the lower abdomen. A bladder infection occurs when bacteria from the vaginal area enter the bladder opening (urethra). This can occur from sexual intercourse, wearing tight clothing, dehydration and other factors. Home Care: Drink lots of fluids (at least 6-8 glasses a day, unless you must restrict fluids for other medical reasons). This will force the medicine into your urinary system and flush the bacteria out of your body. Avoid sexual intercourse until your symptoms are gone. Avoid caffeine, alcohol and spicy foods. These can irritate the bladder. A bladder infection is treated with antibiotics. You may also be given Pyridium (generic = phenazopyridine) to reduce the burning sensation. This medicine will cause your urine to become a bright orange color. The orange urine may stain clothing. You may wear a pad or panty-liner to protect clothing. Preventing Future Infections: Always wipe from front to back after a bowel movement. Keep the genital area clean and dry. Drink plenty of fluids each day to avoid dehydration. Both sexual partners should wash before intercourse. Urinate right after intercourse to flush out the bladder. Wear cotton underwear and cotton-lined panty hose; avoid tight-fitting pants. If you are on control pills and are having frequent bladder infections, discuss with your doctor. Follow Up: Return to this facility or see your doctor if ALL symptoms are not gone after three days of treatment. Get Prompt Medical Attention if any of the following occur: Fever of 100.4F (38C) or higher, or as directed by your healthcare provider No improvement by the third day of treatment Increasing back or abdominal pain Repeated vomiting; unable to keep medicine down Weakness, dizziness or fainting Vaginal discharge Pain, redness or swelling in the labia (outer vaginal area) Influenza (Adult) Influenza, also called the flu, is a viral illness that affects the air passages of the lungs. It differs from the common cold. It is highly contagious. It may be spread through the air by coughing and sneezing or by direct contact (touching the sick person and then touching your own eyes, nose or mouth). Illness starts 1-3 days after exposure and lasts for 1-2 weeks. Antibiotics are usually not needed unless a complication appears (ear or sinus infection or pneumonia). Symptoms may be mild or severe and can include extreme tiredness (wanting to stay in bed all day), chills, fevers, muscle aching, soreness with eye movement, headache, and a dry, hacking cough. Home Care: Avoid exposure to cigarette smoke (yours or others). Tylenol or ibuprofen (Advil) will help fever, muscle aching, and headache. To avoid risk of liver injury, aspirin should not be used in children and teenagers under 18 with this illness. Nausea and loss of appetite are common. A light diet is recommended. Avoid dehydration by drinking 6-8 glasses of fluids per day (water, sport drinks like Gatorade, soft drinks without caffeine, juices, tea, soup, etc.). Extra fluids will also help loosen secretions in the nose and lungs. Tqic-ywa-ehevhij cold medicines will not shorten the duration of the illness but may be helpful for the following symptoms: cough (Robitussin DM); sore throat (Chloraseptic lozenges or spray); nasal and sinus congestion (Actifed or Sudafed). [NOTE: Do not use decongestants if you have high blood pressure.] Stay home until your fever has been gone for at least 24 hours (without the use of fever-reducing medications such as ibuprofen). Follow Up with your doctor or as directed by our staff if you are not improving over the next week. Note: If you are age 65 or older, or if you have chronic asthma or COPD, we recommend a pneumococcal vaccinationevery five years. All adults shouldreceive a yearly influenza vaccination every . Ask your doctor about this. Get Prompt Medical Attention if any of the following occur: Cough with lots of colored sputum (mucus) or blood in your sputum Chest pain, shortness of breath, wheezing, or difficulty breathing Severe headache, face, neck or ear pain New rash Fever of 100.4F (38C) oral or higher, not better with fever medication Confusion, behavior change or seizure Severe weakness or dizziness Albuterol Sulfate Pressurized inhalation, suspension What is this medicine? ALBUTEROL (al BYOO ter ole) is a bronchodilator. It helps open up the airways in your lungs to make it easier to breathe. This medicine is used to treat and to prevent bronchospasm. How should I use this medicine? This medicine is for inhalation through the mouth. Follow the directions on your prescription label. Take your medicine at regular intervals. Do not use more often than directed. Make sure that you are using your inhaler correctly. Ask you doctor or health care provider if you have any questions. Talk to your propellant charge loader regarding the use of this medicine in children. Special care may be needed. What side effects may I notice from receiving this medicine? Side effects that you should report to your doctor or [facility] care unit as soon as possible: allergic reactions like skin rash, itching or hives, swelling of the face, lips, or tongue breathing problems chest pain feeling faint or lightheaded, falls high blood pressure irregular heartbeat fever muscle cramps or weakness pain, tingling, numbness in the hands or feet vomiting Side effects that usually do not require medical attention (report to your doctor or health [facility] care unit if they continue or are bothersome): cough difficulty sleeping headache nervousness or trembling stomach upset stuffy or runny nose throat irritation unusual taste What may interact with this medicine? anti-infectives like chloroquine and pentamidine caffeine cisapride diuretics medicines for colds medicines for depression or for emotional or psychotic conditions medicines for weight loss including some herbal products methadone some antibiotics like clarithromycin, erythromycin, levofloxacin, and linezolid some heart medicines steroid hormones like dexamethasone, cortisone, hydrocortisone theophylline thyroid hormones What if I miss a dose? If you miss a dose, use it as soon as you can. If it is almost time for your next dose, use only that dose. Do not use double or extra doses. Where should I keep my medicine? Keep out of the reach of children. Store at room temperature between 15 and 30 degrees C (59 and 86 degrees F). The contents are under pressure and may burst when exposed to heat or flame. Do not freeze. This medicine does not work as well if it is too cold. Throw away any unused medicine after the expiration date. Inhalers need to be thrown away after the labeled number of puffs have been used or by the expiration date; whichever comes first. Ventolin HFA should be thrown away 12 months after removing from foil pouch. Check the instructions that come with your medicine. What should I tell my health care provider before I take this medicine? They need to know if you have any of the following conditions: diabetes heart disease or irregular heartbeat high blood pressure pheochromocytoma seizures thyroid disease an unusual or allergic reaction to albuterol, levalbuterol, sulfites, other medicines, foods, dyes, or preservatives or trying to get breast-feeding What should I watch for while using this medicine? Tell your doctor or health [facility] care unit if your symptoms do not improve. Do not use extra albuterol. If your asthma or bronchitis gets worse while you are using this medicine, call your doctor right away. If your mouth gets dry try chewing sugarless gum or sucking hard candy. Drink water as directed. You have been given the following additional information: Febrile Illness, Uncertain Cause (Adult) Bronchitis With Wheezing (Adult) Bladder Infection, Female (Adult) Influenza (Adult) Albuterol Sulfate Pressurized inhalation, suspension No strenuous activity. Rest. (Electronically signed by Hong Faulkner MD 11/02/2016 19:52)
--- NOTE | 2016-11-02 19:52 | ED MED RECONCILIATION SUMMARY ---
Patient: CHRISTINE SHEETS Medication Reconciliation Report [facility] VisitID: [id number] [address] [place] [address] 71y, F Registration Date/Time: 11/02/2016 Weight: 77.1 kg Height/Length: 60 in. BMI: 33.2 ALLERGIES: No Known Drug Allergy The patient's Home Medications are listed below: CONTINUE TAKING THE FOLLOWING MEDICATIONS: Advair 115/21 day, 2x a day Allergy med otc day ASA Oral 81mg, 1 tablet every other day Centrim silver 220mg day Fish oil 1000mg BID Lasix Oral 40 mg, daily Losartan Potassium Oral 25 mg, daily Melatonin Oral (3 mg) 1 tablet, hs Metoprolol Tartrate Oral 25 mg, bid Omeprazole Oral 20 mg, daily Pravastatin Sodium Oral 20 mg, at bedtime Proventil inhaler prn Requip Oral (0.5 mg) 1 tablet, hs Sertraline HCl Oral (25 mg) 1 tablet, daily The source(s) of the original Home Medication information: patient The following Medications were given to the patient in the Emergency Department: Albuterol [Neb Tx] Neb TX 1 unit dose, administered: 11/02/2016 12:35:00 PM Rocephin [IVPB] IVPB bolus 0, then 2 gm 100 mL/hr, administered: 11/02/2016 2:04:00 PM Rocephin [IVPB] IVPB bolus 0, then 2 gm 150 mL/hr, administered: 11/02/2016 2:08:00 PM Acetaminophen [PO] PO 1000 mg, administered: 11/02/2016 2:47:00 PM IV NS IV Fluids bolus 0, then 250 mL/hr, administered: 11/02/2016 11:45:00 AM The following Medications were prescribed to the patient: Albuterol HFA oral inhaler: inhale 2 puffs via spacer every 4 hours as needed for wheezing, difficulty breathing or shortness of breath, until symptoms improve. Dispense one (1) unit. No refill. -- Hong Faulkner MD Tamiflu 75 mg: take 1 capsule orally every 12 hours for 5 days. Dispense ten (10). No refills. Substitution is permissible. -- Hong Faulkner MD Septra DS 800 mg / 160 mg: take 1 tablet orally every 12 hours for 7 days. Dispense fourteen (14). No refills. Substitution is permissible. -- Hong Faulkner MD
== END 2016-11-02 14:55 | disposition home or self-care (01) ==
LOC: ED SRH 11:39
DX: N30.00 Acute cystitis without hematuria (principal); J10.1 Influenza due to other identified influenza virus with other respiratory manifestations; R50.9 Fever, unspecified; J98.01 Acute bronchospasm; Z79.51 Long term (current) use of inhaled steroids; Z79.82 Long term (current) use of aspirin; Z79.899 Other long term (current) drug therapy
CPT/HCPCS: 90004; 90065; 90074; 90100; 90469; 90616; 91320; 91400; 91556; 92610; 92720; 93140; 95059